=== PATIENT | female | born 2000 | race Caucasian/White ===

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

== ENCOUNTER 2020-05-07 23:56 | Emergency (ER) | payer BC, OTHER ==
--- OUTSIDE RECORDS SUMMARY | 2020-05-07 23:59 | XMS REPORT | Continuity of Care Document ---
:2000 Author Organization [facility] t Address [address] [place] [address] Care Team Providers Name Role Phone Val GOETZ Attending Clinician Problems Condition Condition Condition Status Onset Resolution Last Treating Co mments Source Name Details Category Date Date Treatment Clinician Date Asthma Asthma Problem Active [facility] Depression Depression Problem [facility] Anxiety Anxiety Problem Active [facility] 8 weeks [address] [facility] [address] [facility] Allergies, Adverse Reactions, Alerts This patient has no known allergies or adverse reactions. Medications Ordered Filled Start Stop Current Ordering Indication Dosage Frequency Signature Comments Components Source Medication Medication Date Date Medication? Clinician (SIG) Name Name 1 1 Yes Iza not [facility] Procedures This patient has no known procedures. Encounters Start End Encounter Admission Attending Care Care Encounter Source Date/Time Date/Time Type Type Clinicians Facility Department ID 2019-06-22 2019-06-22 Office VARGAS Neal [id number] 10:56:57 11:38:27 Visit Emily Mcintosh [id number] Ksenia [id number] Maninder [id number] [place] [address] Building 2018-07-15 2018-07-15 [facility] [id number] [facility] 14:00:00 14:00:00 [facility] Results This patient has no known results.
[2020-05-08] MEDS ORDERED: TETANUS & DIPHTHERIA TOX,ADULT 0.5 ML VIAL ONE (00:51)
[2020-05-08 01:00] LABS: Absolute Lymphocytes (CBC) 2.9 K/uL (0.7-4.9); Basophils % 0.7 % (0-1.3); Hematocrit 40.2 % (36.0-45.0); Lymphocytes % 23.8 % (15.3-44.8); RBC Red Blood Cell Count 4.59 M/uL (3.86-4.86)
[2020-05-08 01:03] LABS: Protime INR 1.08
[2020-05-08 01:24] LABS: Barbiturates NEGATIVE (NEGATIVE); Benzodiazepines NEGATIVE (NEGATIVE); Cocaine NEGATIVE (NEGATIVE); METHAMPHETAM NEGATIVE (NEGATIVE); Methadone NEGATIVE (NEGATIVE); Opiates NEGATIVE (NEGATIVE); Phencyclidine NEGATIVE (NEGATIVE); THC Cannibis POSITIVE (NEGATIVE)
[2020-05-08 01:24] LABS: ALT/SGPT 29 U/L (12-78); AST/SGOT 15 U/L (15-37); Albumin 4.1 g/dL (3.4-5.0); Alkaline Phosphatase 92 U/L (45-117); BUN Blood Urea Nitrogen 15 mg/dL (7-18); Bicarbonate 23 mmol/L (21-32); Bilirubin Direct 0.2 mg/dL (0-0.2); Bilirubin Total 0.5 mg/dL (0.2-1.0); Glucose Level 111 mg/dL (74-106); Potassium 3.4 mmol/L (3.5-5.1); Protein, Total 8.1 g/dL (6.4-8.2); Sodium Level 140 mmol/L (136-145)
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
--- NOTE | 2020-05-08 01:52 | EDPHYS ---
Physician Documentation [facility] Name: Suad Maier Age: 19 yrs Sex: Female : 2000 Arrival Date: 05/07/2020 Time: 23:59 Bed 17 Private MD: Iza Erickson ED Physician Elizabeth Cuellar HPI: 05/08 01:07 This 19 yrs old Female presents to ER via Ambulatory with complaints of ma2 Suicidal Ideation. 01:07 The patient presents to the emergency department with anxiety, depression, suicide ma2 ideation. Onset: The symptoms/episode began/occurred gradually, 3 week(s) ago. Associated signs and symptoms: Pertinent negatives: chest pain, depression, hallucinations. Severity of symptoms: At their worst the symptoms were mild in the emergency department the symptoms are unchanged. The patient has experienced similar episodes in the past. been depressed here with SI and self inflected abrasion to left wrist . 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 - Social history:: Smoking status: Patient reports the use of cigarette tobacco products, smokes one-half pack cigarettes per day, Patient uses street drugs, marijuana, Patient/guardian denies using alcohol, Patient/guardian denies using street drugs, The patient lives with family. - Family history:: not pertinent. ROS: 01:07 Constitutional: Negative for fever, chills, and weight loss. ma2 01:07 All other systems are negative. Exam: 01:07 Constitutional: This is a well developed, well nourished patient who is awake, alert, ma2 and in no acute distress. Chest/axilla: Normal chest wall appearance and motion. Nontender with no deformity. No lesions are appreciated. Cardiovascular: Regular rate and rhythm with a normal S1 and S2. No gallops, murmurs, or rubs. Normal PMI, no JVD. No pulse deficits. Respiratory: Lungs have equal breath sounds bilaterally, clear to auscultation and percussion. No rales, rhonchi or wheezes noted. No increased work of breathing, no retractions or nasal flaring. Abdomen/GI: Soft, non-tender, with normal bowel sounds. No distension or tympany. No guarding or rebound. No evidence of tenderness throughout. Back: No spinal tenderness. No costovertebral tenderness. Full range of motion. Skin: left wrist with superficial abrasions - self inflected.. Warm, dry with normal turgor. Normal color with no rashes, no lesions, and no evidence of cellulitis. MS/ Extremity: Pulses equal, no cyanosis. Neurovascular intact. Full, normal range of motion. Neuro: Awake and alert, GCS 15, oriented to person, place, time, and situation. Cranial nerves II-XII grossly intact. Motor strength 5/5 in all extremities. Sensory grossly intact. Cerebellar exam normal. Normal gait. Psych: Awake, alert, with orientation to person, place and time. Behavior, mood, and affect are within normal limits. 01:07 Psych: Behavior/mood is pleasant, suicidal, depressed, Affect is flat, Oriented to person, place, time, Patient having thoughts of suicide. Judgement / Insight is normal. Memory is normal. Delusions/hallucinations are not present. Vital Signs: 00:10 BP 134 / 95; Pulse 93; Resp 16; Temp 98; Pulse Ox 99% ; Weight 63.5 kg; Height 5 ft. 6 rr5 in. (167.64 cm); Pain 0/10; 08:06 BP 127 / 85; Pulse 87; Resp 17; Temp 98; Pulse Ox 100% ; bp 00:10 Body Mass Index 22.60 (63.50 kg, 167.64 cm) rr5 MDM: 00:04 Patient medically screened. ma2 01:07 Differential diagnosis: drug withdrawal. acute psychotic break, depression, psychosis ma2 secondary to non-compliance. 01:51 Data reviewed: vital signs, nurses notes. Counseling: I had a detailed discussion with ma2 the patient and/or guardian regarding: the historical points, exam findings, and any diagnostic results supporting the discharge/admit diagnosis, the presence of at least one elevated blood pressure reading (>120/80) during this emergency department visit, the need to transfer to another facility. 07:24 ED course: Pt evaluated by [facility], they recommend outpt evaluation, rn will set up outpt appt, per report from Dr. Cuellar, plan was to dc home with [facility]. . 05/08 00:02 Order name: Acetaminophen; Complete Time: 05/08 00:02 Order name: Basic Metabolic Panel; Complete Time: 05/08 00:02 Order name: CBC with Diff; Complete Time: 05/08 00:02 Order name: ETOH Level; Complete Time: 05/08 00:02 Order name: Hepatic Function; Complete Time: 05/08 00:02 Order name: PT-INR; Complete Time: 05/08 00:02 Order name: Ptt, Activated; Complete Time: 05/08 00:02 Order name: Salicylate; Complete Time: 05/08 00:02 Order name: Urine Drug Screen; Complete Time: 05/08 00:51 Order name: Urine --Ancillary (enter results) ds4 05/08 00:52 Order name: Urine Dipstick--Ancillary (enter results) ds4 05/08 04:24 Order name: SARS-COV-2 RT PCR EDIA 05/08 00:02 Order name: Urine Test (obtain specimen); Complete Time: 00:43 05/08 00:02 Order name: EKG; Complete Time: 00:03 ma05/08 00:02 Order name: EKG - Nurse/Tech; Complete Time: 00:24 ma2 05/08 00:02 Order name: IV Saline Lock; Complete Time: 00:24 05/08 00:02 Order name: Labs collected and sent; Complete Time: 00:24 ma05/08 00:02 Order name: Urine Dipstick-Ancillary (obtain specimen); Complete Time: 00:43 05/08 00:28 Order name: Dressing - Wound; Complete Time: 00:42 ma2 Administered Medications: 00:41 Drug: Tetanus-Diphtheria Toxoid Adult 0.5 ml {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 Exp: rr5 08/20/2021. Lot #: [id number]. } Route: IM; Site: right deltoid; : Follow up: Response: No adverse reaction rr5 Disposition: 05/08/20 07:26 Discharged to Home. Impression: Suicidal ideations - Resolved. - Condition is Stable. - Discharge Instructions: Helping Someone Who is Suicidal, Stress and Stress Management. - Medication Reconciliation Form, Thank You Letter, Antibiotic Education, Prescription Opioid Use form. - Follow up: Private Physician; When: 1 - 2 days; Reason: Recheck today's complaints, Re-evaluation by your physician. - Problem is new. - Symptoms have improved. Signatures: Dispatcher [employer] [facility] Juan Strong MD MD rn Carolina Velazco RN RN ss Elizabeth Cuellar MD MD ma2 Dontae Kam RN RN rr5 Corrections: (The following items were deleted from the chart) 03:20 02:58 CORONAVIRUS+MR.LAB.BRZ ordered. [facility] 07:25 01:51 05/08/2020 01:51 Transfer ordered to Psych Facility. Diagnosis is Suicidal rn ideations. Reason for transfer: Higher level of care. Accepting physician is psych. Condition is Stable. Problem is new. Symptoms are unchanged. ma2 08:38 07:26 05/08/2020 07:26 Discharged to Home. Impression: Suicidal ideations - Resolved. Condition is Stable. Forms are Medication Reconciliation Form, Thank You Letter, Antibiotic Education, Prescription Opioid Use. Follow up: Private Physician; When: 1 - 2 days; Reason: Recheck today's complaints, Re-evaluation by your physician. Problem is new. Symptoms have improved. rn
[2020-05-08 02:45] LABS: Urine Specific Gravity >1.030 (1.005-1.030)
[2020-05-08 02:47] LABS: Urine Blood TRACE (NEG); Urine Glucose NEGATIVE (NEG); Urine Protein 2+ (NEG); Urine Specific Gravity >1.030 (1.005-1.030); Urine pH 5.5 (5.0-7.0)
[2020-05-08 08:46] VITALS: TEMP 98
[2020-05-08 08:54] VITALS: BP 127/85; O2SAT 100
== END 2020-05-08 08:38 | disposition home or self-care (01) ==
LOC: ER 23:56
DX: R45.851 Suicidal ideations (principal); Z20.828 Contact with and (suspected) exposure to other viral communicable diseases; F17.210 Nicotine dependence, cigarettes, uncomplicated; F32.9 Major depressive disorder, single episode, unspecified; Z23 Encounter for immunization; Z88.8 Allergy status to other drugs, medicaments and biological substances
CPT/HCPCS: 93005; 85025; 80048; 36415; 80320; 80329 ×2; 81025; 85610; 80076; 80307 ×8; 85730; 81003; 90471; 90714; 99285; U0003

== ENCOUNTER 2020-08-17 13:04 | Emergency (ER) | payer OTHER ==
--- OUTSIDE RECORDS SUMMARY | 2020-08-17 13:07 | XMS REPORT | Continuity of Care Document ---
:2000 Author Organization [facility] t Address [address] [place] [address] Care Team Providers Name Role Phone Val GOETZ Attending Clinician Problems Condition Condition Condition Status Onset Resolution Last Treating Co mments Source Name Details Category Date Date Treatment Clinician Date Anxiety Anxiety Problem Active [facility] 8 weeks 8 weeks [facility] Asthma Asthma Problem Active [facility] Depression Depression Problem Active [facility] Allergies, Adverse [...] Department ID 2019-06-22 2019-06-22 Office VARGAS Neal [id number] 10:56:57 11:38:27 Visit Emily Mcintosh [id number] Ksenia [id number] Maninder [phone] [address] 2018-07-15 2018-07-15 Outpatient Eva Castelan [id number] [address] 14:00:00 14:00:00 [facility] Clin[facility] Results This patient has no known results.
--- NOTE | 2020-08-17 17:43 | ER ---
Nurse's Notes [facility] Name: Suad Maier Age: 20 yrs Sex: Female : 2000 Arrival Date: 08/17/2020 Time: 13:07 Bed Waiting Private MD: Diagnosis: Presentation: 08/17 13:37 Chief complaint: Patient states: Been sick for about a week. Can't seem to keep ca1 anything down, food and water. Very nauseous and it hurts to breathe. Fever on and off. Coronavirus screen: Client denies travel out of the [place] in the last 14 days. fever, nausea, vomiting. Client presents with at least one sign or symptom that may indicate coronavirus-19. Standard/surgical mask placed on the client. Provider contacted for isolation considerations. Ebola Screen: Patient negative for fever greater than or equal to 101.5 degrees Fahrenheit, and additional compatible Ebola Virus Disease symptoms Patient denies exposure to infectious person. Patient denies travel to an Ebola-affected area in the 21 days before illness onset. No symptoms or risks identified at this time. Initial Sepsis Screen: Does the patient meet any 2 criteria? No. Patient's initial sepsis screen is negative. Does the patient have a suspected source of infection? No. Patient's initial sepsis screen is negative. Risk Assessment: Do you want to hurt yourself or someone else? Patient reports no desire to harm self or others. Onset of symptoms was August 17, 2020. 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 - Social history:: Smoking status: Patient reports the use of cigarette tobacco products, smokes one pack cigarettes per day. Reported history of juuling and/or vaping. Vital Signs: 13:37 BP 114 / 74; Pulse 83; Resp 16 S; Temp 98.2(TE); Pulse Ox 100% on R/A; Weight 63.5 kg ca1 (R); Height 5 ft. 6 in. (167.64 cm) (R); Pain 3/10; 13:37 Body Mass Index 22.60 (63.50 kg, 167.64 cm) ca1 ED Course: 13:07 Patient arrived in ED. ds1 13:39 Triage completed. ca1 13:40 Arm band placed on right wrist. ca1 17:42 Patient's name was called from ER lobby. No response. Unable to locate patient. Will ca1 disposition as left without being seen by a provider. Administered Medications: No medications were administered Outcome: 17:42 Patient left the ED. ca1 Signatures: Leonora Dodd ds1 Noemi Carter, RN RN ca1
[2020-08-17 17:47] VITALS: BP 114/74; TEMP 98.2; O2SAT 100
== END 2020-08-17 17:42 | disposition left against medical advice (07) ==
LOC: ER 13:04
DX: Z02.9 Encounter for administrative examinations, unspecified (principal)
CPT/HCPCS: 99281

== ENCOUNTER 2020-09-22 11:50 | Emergency (ER) | payer OTHER ==
--- OUTSIDE RECORDS SUMMARY | 2020-09-22 11:52 | XMS REPORT | Continuity of Care Document ---
:2000 Author Organization [facility] t Address [address] [place] [address] Care Team Providers Name Role Phone Judah Palomino DO Attending Clinician Val GOETZ Attending Clinician Problems Condition Condition [...] Date/Time Type Type Clinicians Facility Department ID 2020-08-29 2020-08-29 Patient Candelario NHROBBIE [id number] 00:00:00 00:00:00 [facility] [id number] Judah [facility] [id number] NASEEM [phone] [id number] 2019-06-22 2019-06-22 Office VARGAS Neal [id number] 10:56:57 11:38:27 Visit Emily Mcintosh [id number] Ksenia [id number] Maninder [phone] [address] 2018-07-15 2018-07-15 Outpatient Eva Castelan [id number] [facility] [address] 14:00:00 14:00:00 [facility] Family Medicine Medicine Outpati ent Clinics Results This patient has no known results.
[2020-09-22 12:53] LABS: Urine Bacteria <20 /HPF (<20); Urine RBC <5 /HPF (NONE SEEN)
[2020-09-22 12:54] LABS: Urine Mucus 3+ /HPF (NONE SEEN)
[2020-09-22] MEDS ORDERED: ONDANSETRON 4 MG/2 ML VIAL ONE (13:04)
[2020-09-22] MEDS ORDERED: KETOROLAC 30 MG/ML INJ ONE (13:04)
[2020-09-22] MEDS ORDERED: NA CHLORIDE 0.9% 1,000 ML ONE (13:05)
[2020-09-22] MEDS ORDERED: FAMOTIDINE 20 MG/2 ML VIAL IV ONE (13:05)
[2020-09-22 13:12] LABS: Absolute Lymphocytes (CBC) 1.6 K/uL (0.7-4.9); Basophils % 0.3 % (0-1.3); Hematocrit 39.9 % (36.0-45.0); MPV 8.7 fL (7.6-11.3); RBC Red Blood Cell Count 4.48 M/uL (3.86-4.86)
--- NOTE | 2020-09-22 13:28 | RAD REPORT ---
EXAM DESCRIPTION: CT - Abdomen Pelvis W Contrast - 09/22/2020 1:12 pm CLINICAL HISTORY: lower abdomen pain COMPARISON: No comparisons TECHNIQUE: Biphasic, helical CT imaging of the abdomen and pelvis was performed following 100 ml non -ionic IV contrast. No oral contrast administered. All CT scans are performed using dose optimization technique as appropriate and may include automated exposure control or mA/KV adjustment according to patient size. FINDINGS: No suspicious findings in the lung bases. The liver, spleen, and pancreas show no suspicious findings. Gallbladder and biliary tree are also wi thout suspicious finding. Symmetric renal function is seen with no hydronephrosis or suspicious renal mass. No pyelonephritis o r acute parenchymal process. No bladder abnormalities. No adrenal abnormalities. Normal-sized uterus is identified. IUD is in place appearing well positioned in the fundal and mid po rtions of the endometrial cavity. No evidence for migration into or through the myometrium. Small fol licles identified in normal sized ovaries. No gastric dilatation or gastric wall thickening. No small bowel abnormality. The appendix is not clara ntified and is surgically absent by patient provided history. Short segment of the ascending colon sh ows circumferential wall thickening. This may be a peristalsis artifact. There is no edema or strandi ng in the adjacent fat. There is also a short segment of the distal descending colon that shows circu mferential wall thickening. There is a trace amount of stranding in the fat adjacent to this portion of the colon. Sigmoid and rectal portions of the colon without acute finding. No free air or pneumatosis. There may be a trace amount of free fluid in the cul de sac well within physiologic limits. No hernia, mass or bulky lymphadenopathy. No suspicious bony findings. IMPRESSION: Short segment of the distal descending colon shows circumferential wall thickening with a trace amount of stranding in the adjacent fat. A mild colitis is suspected. IUD is well positioned. No evidence for migration into or through the myometrium of the uterus. Ovari es are unremarkable. No acute PHARMACY TECHNICIAN INPATIENT process. No pyelonephritis or abnormality seen.
[2020-09-22 14:25] LABS: ALT/SGPT 16 U/L (12-78); AST/SGOT 6 U/L (15-37); Albumin 4.1 g/dL (3.4-5.0); Alkaline Phosphatase 70 U/L (45-117); BUN Blood Urea Nitrogen 18 mg/dL (7-18); Bicarbonate 26 mmol/L (21-32); Bilirubin Direct 0.2 mg/dL (0-0.2); Bilirubin Total 0.8 mg/dL (0.2-1.0); Glucose Level 100 mg/dL (74-106); Lipase 197 U/L (73-393); Potassium 3.9 mmol/L (3.5-5.1); Protein, Total 7.4 g/dL (6.4-8.2); Sodium Level 138 mmol/L (136-145)
--- NOTE | 2020-09-22 14:48 | RAD REPORT ---
EXAM DESCRIPTION: US - Transvaginal Study Probe - 09/22/2020 2:24 pm CLINICAL HISTORY: Abd pain;Vaginal bleeding COMPARISON: No comparisons TECHNIQUE: Endovaginal sonography was performed. FINDINGS: Size uterus seen with no myometrial mass identifiable. An IUD is in place well positioned in the fundal and mid body endometrial cavity. No endometrial mass, polyp or abnormal fluid collectio n identifiable. Both ovaries are identified and show normal ovarian stroma blood flow pattern on Doppler evaluation. No ovarian or adnexal mass. No abnormal blood or fluid in the cul de sac. IMPRESSION: Unremarkable endovaginal pelvic ultrasound. IUD is normally positioned. No unexpected finding.
--- NOTE | 2020-09-22 15:01 | ER ---
Nurse's Notes [facility] Name: Suad Maier Age: 20 yrs Sex: Female : 2000 Arrival Date: 09/22/2020 Time: 11:53 Bed 26 Private MD: Diagnosis: Abnormal uterine and vaginal bleeding, unspecified;Left sided colitis Presentation: 09/22 12:02 Chief complaint: Patient states: I think something's wrong with my IUD. Last couple ca1 periods, I've been cramping real bad, nausea, vomiting, heavy menstrual bleeds which is not normal. This time. my period started 2 - 3 days ago. But I was sick before starting my period. Sick for about a week now. Reports sweating, chills, N/V, abdominal pain and cramps, diarrhea. Denies cough, congestion and fever. Denies urinary symptoms. Coronavirus screen: Client denies travel out of the [place] in the last 14 days. chills, diarrhea, nausea, vomiting. Ebola Screen: Patient negative for fever greater than or equal to 101.5 degrees Fahrenheit, and additional compatible Ebola Virus Disease symptoms Patient denies exposure to infectious person. Patient denies travel to an Ebola-affected area in the 21 days before illness onset. No symptoms or risks identified at this time. Initial Sepsis Screen: Does the patient meet any 2 criteria? No. Patient's initial sepsis screen is negative. Does the patient have a suspected source of infection? No. Patient's initial sepsis screen is negative. Risk Assessment: Do you want to hurt yourself or someone else? Patient reports no desire to harm self or others. Onset of symptoms was September 22, 2020. 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 - Social history:: Smoking status: Patient/guardian denies using tobacco, but has a distant history of tobacco abuse. Screenin:37 Abuse screen: Denies threats or abuse. Denies injuries from another. Nutritional zb screening: No deficits noted. Tuberculosis screening: No symptoms or risk factors identified. Fall Risk None identified. Assessment: 12:35 General: Appears in no apparent distress. uncomfortable, Behavior is crying. Pain: zb Complains of pain in suprapubic area Pain currently is 8 out of 10 on a pain scale. Quality of pain is described as aching, crampy, pressure, Pain began 1 week ago. Neuro: Level of Consciousness is awake, alert, obeys commands, Oriented to person, place, time, situation. Cardiovascular: Patient's skin is warm and dry. Respiratory: Airway is patent Respiratory effort is even, unlabored, Respiratory pattern is regular, symmetrical. GI: Abdomen is flat, Bowel sounds present X 4 quads. Abd is soft and non tender X 4 quads. Reports diarrhea, nausea, Pain is 8 out of 10 on a pain scale. vomiting. : Urine is dark CVA tenderness noted on right Reports cramping, vaginal bleeding that is moderate flow. Derm: Skin is intact, Skin is dry, Skin is normal. Musculoskeletal: Circulation, motion, and sensation intact. Range of motion: intact in all extremities. 13:39 Reassessment: Patient appears in no apparent distress at this time. Patient and/or zb family updated on plan of care and expected duration. Pain level reassessed. Patient is alert, oriented x 3, equal unlabored respirations, skin warm/dry/pink. iv fluid infusing. lights dimmed for patient comfort. adult at bedside. 14:00 Reassessment: notified ecp supplies at bedside for pelvic exam. zb 15:02 Reassessment: Patient appears in no apparent distress at this time. Patient and/or zb family updated on plan of care and expected duration. Pain level reassessed. Patient is alert, oriented x 3, equal unlabored respirations, skin warm/dry/pink. 15:25 Reassessment: gait steady and even. patient ambulated with family out to lobby. pain zb decreased. Patient states feeling better. Vital Signs: 12:02 BP 120 / 72; Pulse 72; Resp 16 S; Temp 98.3(TE); Pulse Ox 97% on R/A; Weight 63.5 kg ca1 (R); Height 5 ft. 6 in. (167.64 cm) (R); Pain 5/10; 13:30 BP 117 / 71; Pulse 60; Resp 18; Pulse Ox 99% on R/A; zb 14:34 BP 111 / 71; Pulse 56; Resp 16; Pulse Ox 99% on R/A; zb 15:25 BP 108 / 70; Pulse 62; Resp 18; Pulse Ox 99% on R/A; zb 12:02 Body Mass Index 22.60 (63.50 kg, 167.64 cm) ca1 ED Course: 11:53 Patient arrived in ED. am2 12:06 Triage completed. ca1 12:07 Arm band placed on right wrist. ca1 12:08 Ac Bartlett PA is PHCP. cp 12:08 Serafin Rubalcava MD is Attending Physician. cp 12:19 Julia Aguirre, CELESTINA is Primary Nurse. zb 12:33 Urine Microscopic Only Sent. zb 12:38 Patient has correct armband on for positive identification. Bed in low position. Call zb light in reach. Side rails up X 1. Pulse ox on. NIBP on. Door closed. Noise minimized. 13:12 CT Abd/Pelvis - IV Contrast Only In Process Unspecified. EDMS 14:23 US Transvaginal Study (Probe) In Process Unspecified. EDMS 14:50 Assist provider with pelvic exam: Set up pelvic tray. Performed by Ac GARNICA zb Specimens sent to lab. Patient tolerated well. 15:00 Peter Beyer MD is Referral Physician. cp 15:00 Referral Physician role handed off by Peter Beyer MD cp 15:00 Peter Beyer MD is Referral Physician. cp 15:25 IV discontinued, intact, bleeding controlled, No redness/swelling at site. Pressure zb dressing applied. Administered Medications: 13:38 Drug: TORadol - (ketorolac) 15 mg Route: IVP; Site: right antecubital; zb 14:32 Follow up: Response: No adverse reaction; Pain is decreased zb 13:38 Drug: Zofran (Ondansetron) 4 mg Route: IVP; Site: right antecubital; zb 14:33 Follow up: Response: No adverse reaction; Nausea is decreased zb 13:38 Drug: Pepcid (famotidine) 20 mg Route: IVP; Site: right antecubital; zb 14:33 Follow up: Response: No adverse reaction zb 13:39 Drug: NS 0.9% 1000 ml Route: IV; Rate: 1 bolus; Site: right antecubital; zb 14:32 Follow up: Response: No adverse reaction; Marked relief of symptoms; IV Status: zb Completed infusion; IV Intake: 1000ml 15:23 Drug: metroNIDAZOLE 500 mg Route: PO; zb 15:24 Follow up: Response: Medication administered at discharge. zb 15:23 Drug: Cipro (ciprofloxacin) 500 mg Route: PO; zb 15:23 Follow up: Response: Medication administered at discharge. zb Intake: 14:32 IV: 1000ml; Total: 1000ml. zb Outcome: 15:01 Discharge ordered by MD. cp 15:24 Discharged to home ambulatory. zb 15:24 Condition: stable 15:24 Discharge instructions given to patient, family, Instructed on discharge instructions, follow up and referral plans. medication usage, Demonstrated understanding of instructions, follow-up care, medications, Prescriptions given X 4. 15:26 Patient left the ED. zb Signatures: Dispatcher [employer] EDMS Ac Bartlett PA PA cp Moreno, Amanda am2 Noemi Carter RN RN ca1 Julia Aguirre RN RN zb Corrections: (The following items were deleted from the chart) 12:08 12:02 Chief complaint: Patient states: I think something's wrong with my IUD. Last ca1 couple periods, I've been cramping real bad, nausea, vomiting, heavy menstrual bleeds which is not normal. This time. my period started 2 - 3 days ago. But I was sick before starting my period. Sick for about a week now. Reports sweating, chills, N/V, abdominal pain and cramps, diarrhea. Denies cough, congestion and fever. ca1
--- NOTE | 2020-09-22 15:01 | EDPHYS ---
Physician Documentation [facility] Name: Suad Maier Age: 20 yrs Sex: Female : 2000 Arrival Date: 09/22/2020 Time: 11:53 Bed 26 Private MD: ED Physician Serafin Rubalcava HPI: 09/22 12:30 This 20 yrs old Female presents to ER via Ambulatory with complaints of cp Abdominal Pain, Nausea, Urinary Frequency, Vaginal Bleeding. 12:30 The patient presents with abdominal pain in the lower abdomen. Onset: The cp symptoms/episode began/occurred 1 week(s) ago. The symptoms radiate to lower back. Associated signs and symptoms: Pertinent positives: nausea, vomiting, and diarrhea, vaginal discharge, vaginal bleeding, Pertinent negatives: constipation, fever. The symptoms are described as crampy. Severity of pain: in the emergency department the pain is unchanged despite home interventions. 12:30 Modifying factors: The symptoms are alleviated by nothing, the symptoms are aggravated cp by lying flat. 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 - Social history:: Smoking status: Patient/guardian denies using tobacco, but has a distant history of tobacco abuse. ROS: 12:35 Constitutional: Negative for body aches, chills, fever, poor PO intake. cp 12:35 Eyes: Negative for injury, pain, redness, and discharge. cp 12:35 Cardiovascular: Negative for chest pain, palpitations. 12:35 Respiratory: Negative for cough, shortness of breath, wheezing. 12:35 Abdomen/GI: Positive for abdominal pain, nausea, vomiting, and diarrhea, abdominal cramps, Negative for hematemesis, black/tarry stool, rectal bleeding. 12:35 : Positive for vaginal bleeding, vaginal discharge, Negative for urinary symptoms. 12:35 Neuro: Negative for altered mental status, headache, weakness. 12:35 All other systems are negative. Exam: 12:40 Head/Face: Normocephalic, atraumatic. cp 12:40 Constitutional: The patient appears in no acute distress, alert, awake, non-toxic, well developed, well nourished, uncomfortable. 13:30 Eyes: Periorbital structures: appear normal, Conjunctiva: normal, no exudate, no cp injection, Sclera: no appreciated abnormality, Lids and lashes: appear normal, bilaterally. 13:30 ENT: External ear(s): are unremarkable, Nose: is normal, Posterior pharynx: Airway: no evidence of obstruction, patent. 13:30 Chest/axilla: Inspection: normal, Palpation: is normal, no crepitus, no tenderness. 13:30 Cardiovascular: Rate: normal, Rhythm: regular. 13:30 Respiratory: the patient does not display signs of respiratory distress, Respirations: normal, no use of accessory muscles, no retractions, labored breathing, is not present, Breath sounds: are clear throughout, no decreased breath sounds. 13:30 Abdomen/GI: Inspection: abdomen appears normal, Bowel sounds: active, all quadrants, Palpation: soft, in all quadrants, moderate abdominal tenderness, in the right lower quadrant and left lower quadrant, rebound tenderness, is not appreciated, voluntary guarding, is elicited in the right lower quadrant and left lower quadrant. 13:30 Back: CVA tenderness, is absent. 14:00 : Pelvic Exam: External exam: is normal, Speculum exam: mild bleeding, no cervicitis, cp os that is closed, bimanual exam reveals no cervical motion tenderness, no uterine tenderness, no adnexa tenderness or masses bilaterally, discharge, bloody, a female lead caster helper was present for the exam. Vital Signs: 12:02 BP 120 / 72; Pulse 72; Resp 16 S; Temp 98.3(TE); Pulse Ox 97% on R/A; Weight 63.5 kg ca1 (R); Height 5 ft. 6 in. (167.64 cm) (R); Pain 5/10; 13:30 BP 117 / 71; Pulse 60; Resp 18; Pulse Ox 99% on R/A; zb 14:34 BP 111 / 71; Pulse 56; Resp 16; Pulse Ox 99% on R/A; zb 15:25 BP 108 / 70; Pulse 62; Resp 18; Pulse Ox 99% on R/A; zb 12:02 Body Mass Index 22.60 (63.50 kg, 167.64 cm) ca1 MDM: 12:14 Patient medically screened. cp 13:00 Differential diagnosis: appendicitis, gastritis, Ovarian Torsion, Ureterolithiasis, cp urinary tract infection, colitis. 15:00 Data reviewed: vital signs, nurses notes, lab test result(s), radiologic studies, CT cp scan, ultrasound. 15:00 Counseling: I had a detailed discussion with the patient and/or guardian regarding: the cp historical points, exam findings, and any diagnostic results supporting the discharge/admit diagnosis, radiology results, the need for outpatient follow up, a mba intern, to return to the emergency department if symptoms worsen or persist or if there are any questions or concerns that arise at home. Response to treatment: the patient's symptoms have markedly improved after treatment, and as a result, I will discharge patient. 09/22 12:09 Order name: Urine Microscopic Only; Complete Time: 13:44 cp 09/22 12:35 Order name: Urine --Ancillary (enter results); Complete Time: 13:44 eb 09/22 12:37 Order name: Basic Metabolic Panel 09/22 12:37 Order name: CBC with Diff 09/22 12:37 Order name: Hepatic Function 09/22 12:37 Order name: Lipase 09/22 12:37 Order name: CT Abd/Pelvis - IV Contrast Only; Complete Time: 13:44 cp 09/22 12:38 Order name: Basic Metabolic Panel; Complete Time: 14:52 EDMS 09/22 12:38 Order name: CBC with Automated Diff; Complete Time: 13:44 EDMS 09/22 12:38 Order name: Liver (Hepatic) Function; Complete Time: 14:52 EDMS 09/22 12:38 Order name: Lipase; Complete Time: 14:52 EDMS 09/22 12:55 Order name: Urine Culture [facility] 09/22 13:52 Order name: GC (GONORR/CHLAMYDIA) Probe 09/22 13:52 Order name: Wet Prep 09/22 12:06 Order name: Urine Dipstick-Ancillary (obtain specimen); Complete Time: 12:33 tw4 09/22 12:06 Order name: Urine Test (obtain specimen); Complete Time: 12:33 tw4 09/22 12:37 Order name: IV Saline Lock; Complete Time: 12:56 cp 09/22 12:37 Order name: Labs collected and sent; Complete Time: 12:56 cp 09/22 13:46 Order name: US Transvaginal Study (Probe); Complete Time: 14:52 cp 09/22 13:52 Order name: Pelvic Exam Setup; Complete Time: 14:32 cp Administered Medications: 13:38 Drug: TORadol - (ketorolac) 15 mg Route: IVP; Site: right antecubital; zb 14:32 Follow up: Response: No adverse reaction; Pain is decreased zb 13:38 Drug: Zofran (Ondansetron) 4 mg Route: IVP; Site: right antecubital; zb 14:33 Follow up: Response: No adverse reaction; Nausea is decreased zb 13:38 Drug: Pepcid (famotidine) 20 mg Route: IVP; Site: right antecubital; zb 14:33 Follow up: Response: No adverse reaction zb 13:39 Drug: NS 0.9% 1000 ml Route: IV; Rate: 1 bolus; Site: right antecubital; zb 14:32 Follow up: Response: No adverse reaction; Marked relief of symptoms; IV Status: zb Completed infusion; IV Intake: 1000ml 15:23 Drug: metroNIDAZOLE 500 mg Route: PO; zb 15:24 Follow up: Response: Medication administered at discharge. zb 15:23 Drug: Cipro (ciprofloxacin) 500 mg Route: PO; zb 15:23 Follow up: Response: Medication administered at discharge. zb Disposition: 18:46 Co-signature as Attending Physician, Serafin Rubalcava MD I agree with the assessment and tw4 plan of care. Disposition: 09/22/20 15:01 Discharged to Home. Impression: Abnormal uterine and vaginal bleeding, unspecified, Left sided colitis. - Condition is Stable. - Discharge Instructions: Abnormal Uterine Bleeding, Colitis. - Prescriptions for Zofran 4 mg Oral Tablet - take 1 tablet by ORAL route every 12 hours As needed; 20 tablet. Cipro 500 mg Oral Tablet - take 1 tablet by ORAL route every 12 hours for 7 days; 14 tablet. Metronidazole 500 mg Oral Tablet - take 1 tablet by ORAL route every 8 hours; 30 tablet. Tramadol 50 mg Oral Tablet - take 1 tablet by ORAL route every 8 hours as needed; 12 tablet. - Medication Reconciliation Form, Thank You Letter, Antibiotic Education, Prescription Opioid Use form. - Follow up: Peter Beyer MD; When: 1 week; Reason: Recheck today's complaints. Follow up: Peter Beyer MD; When: 1 week; Reason: abdominal pain and diarrhea continues. Signatures: Dispatcher [employer] EDMS Ac Bartlett PA PA cp Serafin Rubalcava MD MD tw4 Noemi Carter RN RN ca1 Julia Aguirre RN RN zb Corrections: (The following items were deleted from the chart) 15:26 15:01 09/22/2020 15:01 Discharged to Home. Impression: Abnormal uterine and vaginal zb bleeding, unspecified; Left sided colitis. Condition is Stable. Forms are Medication Reconciliation Form, Thank You Letter, Antibiotic Education, Prescription Opioid Use. Follow up: Peter Beyer; When: 1 week; Reason: abdominal pain and diarrhea continues. cp 16:58 13:30 Constitutional: The patient appears in no acute distress, alert, awake, cp non-toxic, well developed, well nourished, uncomfortable, cp 16:58 13:30 Head/Face: Normocephalic, atraumatic. cp cp
[2020-09-22 15:31] VITALS: TEMP 98.3
[2020-09-22 15:32] VITALS: O2SAT 99
[2020-09-22] MEDS ORDERED: metroNIDAZOLE 500 MG TABLET ONE (15:33)
[2020-09-22] MEDS ORDERED: CIPROFLOXACIN HCL 500 MG TAB ONE (15:33)
[2020-09-22 15:36] VITALS: BP 108/70
[2020-09-25 15:01] LABS: C.trachomatis RNA,TMA Not Detected (Not Detected)
[2020-09-27 16:30] LABS: Urine Glucose NEGATIVE (Negative); Urine Specific Gravity >1.030 (1.005-1.030)
[2020-09-27 16:32] LABS: Urine Blood TRACE (Negative); Urine Protein TRACE (Negative); Urine pH 6.5 (5.0-7.0)
== END 2020-09-22 15:26 | disposition home or self-care (01) ==
LOC: ER 11:50
DX: K51.50 Left sided colitis without complications (principal); N93.9 Abnormal uterine and vaginal bleeding, unspecified; F41.8 Other specified anxiety disorders; Z88.8 Allergy status to other drugs, medicaments and biological substances
CPT/HCPCS: 96361; 87088; 85025; 87086; 80048; 36415; 81025; 82565; 80076; 87210; 81015; 83690; 87590; 87490; 74177; 76830; 96375; 96374; 99284; Q9967; J7030; J2405; 81003

== ENCOUNTER 2020-10-08 08:48 | Emergency (ER) | payer OTHER ==
--- OUTSIDE RECORDS SUMMARY | 2020-10-08 08:51 | XMS REPORT | Continuity of Care Document ---
:2000 Author Organization [facility] t Address [address] [place] [address] Care Team Providers Name Role Phone Salbador Islas LMSW Attending Clinician Unavailable Judah Palomino DO Attending Clinician Val GOETZ [...] [facility] Allergies, Adverse Reactions, Alerts This [...] Date/Time Type Type Clinicians Facility Department ID 2020-09-26 2020-09-26 Azael Islas Bala [id number] 00:00:00 00:00:00 Management Olive Greene [id number] Armen [id number] 2020-08-29 2020-08-29 Patient Candelario [facility] [id number] 00:00:00 00:00:00 Outreach Boy ANTHONY [id number] [facility] [id number] NASEEM [id number] 2019-06-22 2019-06-22 Office Val GAROBBIE [id number] 10:56:57 11:38:27 Visit Emily Mcintosh [id number] Ksenia [id number] Maninder [id number] [address] 2018-07-15 2018-07-15 [id number] [facility] 14:00:00 14:00:00 [facility] Medicine Outpati ent Clinics Results This patient has no known results.
[2020-10-08] MEDS ORDERED: NA CHLORIDE 0.9% 1,000 ML ONE (10:05)
[2020-10-08] MEDS ORDERED: ONDANSETRON 4 MG/2 ML VIAL ONE ×2 (10:05→11:37)
[2020-10-08] MEDS ORDERED: MORPHINE 4 MG/ML SYR ONE ×2 (10:05→11:36)
[2020-10-08 10:13] LABS: Absolute Lymphocytes (CBC) 2.1 K/uL (0.7-4.9); Basophils % 0.6 % (0-1.3); Hematocrit 40.2 % (36.0-45.0); Lymphocytes % 14.6 % (15.3-44.8); MPV 8.9 fL (7.6-11.3); RBC Red Blood Cell Count 4.47 M/uL (3.86-4.86)
[2020-10-08 10:20] LABS: ALT/SGPT 21 U/L (12-78); AST/SGOT 11 U/L (15-37); Albumin 3.9 g/dL (3.4-5.0); Alkaline Phosphatase 60 U/L (45-117); BUN Blood Urea Nitrogen 24 mg/dL (7-18); Bicarbonate 25 mmol/L (21-32); Bilirubin Direct 0.1 mg/dL (0-0.2); Bilirubin Total 0.5 mg/dL (0.2-1.0); Glucose Level 120 mg/dL (74-106); Lipase 165 U/L (73-393); Potassium 3.4 mmol/L (3.5-5.1); Sodium Level 142 mmol/L (136-145)
--- NOTE | 2020-10-08 11:25 | RAD REPORT ---
EXAM DESCRIPTION: CTAbdomen Pelvis W Contrast - 10/08/2020 11:13 am CLINICAL HISTORY: Abdominal pain. ABD PAIN COMPARISON: Abdomen Pelvis W Contrast dated 09/22/2020 TECHNIQUE: Biphasic CT imaging of the abdomen and pelvis was performed with 100 ml non-ionic IV cont rast. All CT scans are performed using dose optimization technique as appropriate and may include automated exposure control or mA/KV adjustment according to patient size. FINDINGS: The lung bases are clear. The liver, spleen, pancreas, adrenal glands and kidneys are within normal limits. No bowel obstruction, free air, free fluid or abscess. Significant stool is retained throughout the c olon. IUD is present in the uterus. Appendectomy. No evidence of significant lymphadenopathy. No suspicious bony findings. IMPRESSION: No acute intra-abdominal or pelvic finding.
--- NOTE | 2020-10-08 11:37 | EDPHYS ---
Physician Documentation [facility] Name: Suad Maier Age: 20 yrs Sex: Female : 2000 Arrival Date: 10/08/2020 Time: 08:49 Bed 13 Private MD: ED Physician Elizabeth Cuellar HPI: 10/08 10:45 This 20 yrs old Female presents to ER via Wheelchair with complaints of uc kb flare. 10:45 The patient presents with abdominal pain. Onset: The symptoms/episode began/occurred 3 kb day(s) ago. The symptoms do not radiate. Associated signs and symptoms: Pertinent positives: nausea, vomiting, and diarrhea, fever. The symptoms are described as constant. Modifying factors: The symptoms are alleviated by nothing, the symptoms are aggravated by pressure. Severity of pain: At its worst the pain was moderate in the emergency department the pain is unchanged. The patient has not experienced similar symptoms in the past. The patient has not recently seen a physician. Pt reports abdominal pain for 3 days with n/v/d and fever. States she has had this several times due to colitis. . 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 - Social history:: Smoking status: Patient denies any tobacco usage or history of. ROS: 10:42 Cardiovascular: Negative for chest pain, palpitations, and edema, Respiratory: Negative kb for shortness of breath, cough, wheezing, and pleuritic chest pain, MS/Extremity: Negative for injury and deformity, Skin: Negative for injury, rash, and discoloration, Neuro: Negative for headache, weakness, numbness, tingling, and seizure. 10:42 Constitutional: Positive for fever. 10:42 Abdomen/GI: Positive for abdominal pain, nausea, vomiting, and diarrhea. Exam: 10:44 Head/Face: Normocephalic, atraumatic. Cardiovascular: Regular rate and rhythm with a kb normal S1 and S2. No gallops, murmurs, or rubs. No pulse deficits. Respiratory: Respirations even and unlabored. No increased work of breathing, no retractions or nasal flaring. Skin: Warm, dry with normal turgor. Normal color. MS/ Extremity: Pulses equal, no cyanosis. Neurovascular intact. Full, normal range of motion. Neuro: Awake and alert, GCS 15, oriented to person, place, time, and situation. Moves all extremities. Normal gait. 10:44 Constitutional: The patient appears alert, awake, uncomfortable. 10:44 Abdomen/GI: Inspection: abdomen appears normal, Bowel sounds: normal, in all quadrants, Palpation: soft, in all quadrants, mild abdominal tenderness, in all quadrants, moderate abdominal tenderness, in the right upper quadrant. Vital Signs: 09:05 BP 119 / 85; Pulse 85; Resp 16 S; Temp 97.0(TE); Pulse Ox 98% on R/A; Weight 61.23 kg aa5 (R); Height 5 ft. 6 in. (167.64 cm) (R); 10:00 BP 138 / 75; Pulse 63; Resp 20; Pulse Ox 98% on R/A; Pain 10/10; kg 11:23 BP 132 / 86; Pulse 57; Resp 18 S; Pulse Ox 98% on R/A; ca1 09:05 Body Mass Index 21.79 (61.23 kg, 167.64 cm) aa5 MDM: 09:21 Patient medically screened. kb 10:43 Data reviewed: vital signs, nurses notes. Data interpreted: Pulse oximetry: on room air kb is 98 %. Interpretation: normal. 11:31 Counseling: I had a detailed discussion with the patient and/or guardian regarding: the kb historical points, exam findings, and any diagnostic results supporting the discharge/admit diagnosis, lab results, radiology results, the need for outpatient follow up, a family practitioner, a umbrella frame maker, to return to the emergency department if symptoms worsen or persist or if there are any questions or concerns that arise at home. 10/08 09:21 Order name: Basic Metabolic Panel kb 10/08 09:21 Order name: CBC with Diff; Complete Time: 10:19 kb 10/08 09:21 Order name: Hepatic Function; Complete Time: 10:31 kb 10/08 09:21 Order name: Lipase; Complete Time: 10:31 kb 10/08 09:22 Order name: Basic Metabolic Panel; Complete Time: 10:31 EDMS 10/08 10:31 Order name: CT Abd/Pelvis - IV Contrast Only kb 10/08 11:25 Order name: CT; Complete Time: 11:30 EDMS 10/08 09:21 Order name: IV Saline Lock; Complete Time: 09:44 kb 10/08 09:21 Order name: Labs collected and sent; Complete Time: 09:44 kb Administered Medications: 09:54 Drug: morphine 4 mg Route: IVP; Site: right antecubital; kg 09:55 Drug: NS 0.9% 1000 ml Route: IV; Rate: 1000 ml; Site: right antecubital; kg 09:55 Drug: Zofran (Ondansetron) 4 mg Route: IVP; Site: right antecubital; kg 11:20 Drug: Zofran (Ondansetron) 4 mg Route: IVP; Site: right antecubital; ca1 11:22 Drug: morphine 4 mg {Note: rass 1.} Route: IVP; Site: right antecubital; ca1 12:35 Drug: TORadol - (ketorolac) 15 mg Route: IVP; Site: right antecubital; zb 12:45 Follow up: Response: Medication administered at discharge. zb 12:35 Drug: Phenergan (promethazine) 12.5 mg Route: IVP; Site: right antecubital; zb 12:46 Follow up: Response: Medication administered at discharge. zb Disposition: 10/09 11:08 Co-signature as Attending Physician, Elizabeth Cuellar MD. ma2 Disposition: 10/08/20 11:36 Discharged to Home. Impression: Generalized abdominal pain, Nausea and vomiting. - Condition is Stable. - Discharge Instructions: Ulcerative Colitis, Adult, Nausea and Vomiting, Adult, [id number], Abdominal Pain, Adult, [id number]. - Prescriptions for Bentyl 20 mg Oral Tablet - take 1 tablet by ORAL route every 6 hours As needed; 20 tablet. Cipro 500 mg Oral Tablet - take 1 tablet by ORAL route every 12 hours for 10 days; 20 tablet. Flagyl 500 mg Oral Tablet - take 1 tablet by ORAL route every 8 hours for 10 days; 30 tablet. Zofran 4 mg Oral Tablet - take 1 tablet by ORAL route every 12 hours As needed; 20 tablet. - Medication Reconciliation Form, Thank You Letter, Antibiotic Education, Prescription Opioid Use form. - Follow up: Emergency Department; When: As needed; Reason: Worsening of condition. Follow up: Private Physician; When: 2 - 3 days; Reason: Recheck today's complaints, Continuance of care, Re-evaluation by your physician. Signatures: Dispatcher [employer] EDMS Haily Melvin, TERI-C SUPERVISOR WOUND-Talia Núñez, RN RN aa5 Elizabeth Cuellar MD MD ma2 Noemi Carter RN RN ca1 Julia Aguirre RN RN Chula Funez kg Corrections: (The following items were deleted from the chart) 10/08 12:55 11:36 10/08/2020 11:36 Discharged to Home. Impression: Generalized abdominal pain; zb Nausea and vomiting. Condition is Stable. Forms are Medication Reconciliation Form, Thank You Letter, Antibiotic Education, Prescription Opioid Use. Follow up: Emergency Department; When: As needed; Reason: Worsening of condition. Follow up: Private Physician; When: 2 - 3 days; Reason: Recheck today's complaints, Continuance of care, Re-evaluation by your physician. kb
--- NOTE | 2020-10-08 11:37 | ER ---
Nurse's Notes [facility] Name: Suad Maier Age: 20 yrs Sex: Female : 2000 Arrival Date: 10/08/2020 Time: 08:49 Bed 13 Private MD: Diagnosis: Generalized abdominal pain;Nausea and vomiting Presentation: 10/08 09:05 Chief complaint: Patient states: vomiting that began this morning. Pt also c/o abd pain.aa5 09:05 Coronavirus screen: nausea, vomiting. Ebola Screen: Patient negative for fever greater aa5 than or equal to 101.5 degrees Fahrenheit, and additional compatible Ebola Virus Disease symptoms. Initial Sepsis Screen: Does the patient meet any 2 criteria? No. Patient's initial sepsis screen is negative. Does the patient have a suspected source of infection? No. Patient's initial sepsis screen is negative. Risk Assessment: Do you want to hurt yourself or someone else? Patient reports no desire to harm self or others. Onset of symptoms was October 2020. 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 - Social history:: Smoking status: Patient denies any tobacco usage or history of. Screenin:59 Abuse screen: Denies threats or abuse. Nutritional screening: No deficits noted. kg Tuberculosis screening: No symptoms or risk factors identified. Fall Risk None identified. No fall in past 12 months (0 pts). No secondary diagnosis (0 pts). IV access (20 points). Ambulatory Aid- None/Bed Rest/Nurse Assist (0 pts). Gait- Normal/Bed Rest/Wheelchair (0 pts) Mental Status- Oriented to own ability (0 pts). Total Garcia Fall Scale indicates No Risk (0-24 pts). Assessment: 09:55 General: Appears uncomfortable, Behavior is anxious, crying, restless. Pain: Complains kg of pain in abdomen Pain currently is 10 out of 10 on a pain scale. at worst was 10 out of 10 on a pain scale. level that patient reports is acceptable is 3 out of 10 on a pain scale. Quality of pain is described as burning, aching, sharp, stabbing, Pain began gradually, 2-3 days ago. Neuro: No deficits noted. Cardiovascular: No deficits noted. Respiratory: No deficits noted. GI: Abdomen is flat, Pt is actively vomiting bile, clear fluid, Stools are reported to be diarrhea. Last BM was October 08, 2020. Patient complaining of bloating and gas Bowel sounds present X 4 quads. Abd is soft Abdomen is tender to palpation X 4 quads. Reports lower abdominal pain, upper abdominal pain, bloating, diarrhea, gaseousness, Pain is 10 out of 10 on a pain scale. vomiting. : No deficits noted. EENT: No deficits noted. Derm: No deficits noted. Musculoskeletal: No deficits noted. 11:23 Reassessment: Patient appears in no apparent distress at this time. No changes from ca1 previously documented assessment. Patient is alert, oriented x 3, equal unlabored respirations, skin warm/dry/pink. 12:30 Reassessment: Patient appears in no apparent distress at this time. No changes from zb previously documented assessment. Patient is alert, oriented x 3, equal unlabored respirations, skin warm/dry/pink. notified ecp that patient stated that she was still nauseous and still in pain. medications ordered. 12:47 Reassessment: kemal wheeled out by tax examining technician. zb Vital Signs: 09:05 BP 119 / 85; Pulse 85; Resp 16 S; Temp 97.0(TE); Pulse Ox 98% on R/A; Weight 61.23 kg aa5 (R); Height 5 ft. 6 in. (167.64 cm) (R); 10:00 BP 138 / 75; Pulse 63; Resp 20; Pulse Ox 98% on R/A; Pain 10/10; kg 11:23 BP 132 / 86; Pulse 57; Resp 18 S; Pulse Ox 98% on R/A; ca1 09:05 Body Mass Index 21.79 (61.23 kg, 167.64 cm) aa5 ED Course: 08:49 Patient arrived in ED. as 09:03 Haily Melvin FNP-C is PHCP. kb 09:03 Elizabeth Cuellar MD is Attending Physician. kb 09:05 Arm band placed on. aa5 09:11 Triage completed. aa5 09:34 Chula Nieves is Primary Nurse. kg 09:35 Inserted saline lock: 20 gauge in right antecubital area, using aseptic technique. kg 09:44 Basic Metabolic Panel Sent. kg 10:02 Patient has correct armband on for positive identification. Bed in low position. Call kg light in reach. Side rails up X2. 12:54 No provider procedures requiring assistance completed. IV discontinued, intact, zb bleeding controlled, No redness/swelling at site. Pressure dressing applied. Administered Medications: 09:54 Drug: morphine 4 mg Route: IVP; Site: right antecubital; kg 09:55 Drug: NS 0.9% 1000 ml Route: IV; Rate: 1000 ml; Site: right antecubital; kg 09:55 Drug: Zofran (Ondansetron) 4 mg Route: IVP; Site: right antecubital; kg 11:20 Drug: Zofran (Ondansetron) 4 mg Route: IVP; Site: right antecubital; ca1 11:22 Drug: morphine 4 mg {Note: rass 1.} Route: IVP; Site: right antecubital; ca1 12:35 Drug: TORadol - (ketorolac) 15 mg Route: IVP; Site: right antecubital; zb 12:45 Follow up: Response: Medication administered at discharge. zb 12:35 Drug: Phenergan (promethazine) 12.5 mg Route: IVP; Site: right antecubital; zb 12:46 Follow up: Response: Medication administered at discharge. zb Outcome: 11:36 Discharge ordered by MD. kb 12:54 Discharged to home via wheelchair. zb 12:54 Condition: stable 12:54 Discharge instructions given to patient, Instructed on discharge instructions, follow up and referral plans. medication usage, Demonstrated understanding of instructions, follow-up care, medications, Prescriptions given X 4. 12:55 Patient left the ED. zb Signatures: Haily Melvin, MARIEC TERI-Estefany Momin Audri, RN RN aa5 Noemi Carter RN RN ca1 Brown, Julia, RN Chula Carvalho kg Corrections: (The following items were deleted from the chart) 09:12 09:10 Arm band placed on aa5 aa5
[2020-10-08] MEDS ORDERED: PROMETHAZINE INJ 25 MG/ML AMP ONE (12:53)
[2020-10-08] MEDS ORDERED: KETOROLAC 30 MG/ML INJ ONE (12:53)
[2020-10-08 13:11] VITALS: TEMP 97; O2SAT 98
[2020-10-08 13:18] VITALS: BP 132/86
== END 2020-10-08 12:55 | disposition home or self-care (01) ==
LOC: ER 08:48
DX: K51.918 Ulcerative colitis, unspecified with other complication (principal); F41.9 Anxiety disorder, unspecified; F32.9 Major depressive disorder, single episode, unspecified; F42.9 Obsessive-compulsive disorder, unspecified; F43.10 Post-traumatic stress disorder, unspecified; Z91.5 Personal history of self-harm
CPT/HCPCS: 85025; 80048; 36415; 80076; 83690; 74177; 96375; 96374; 99284; Q9967; J2550; J7030; J2405 ×2

== ENCOUNTER 2020-10-26 08:48 | Emergency (ER) | payer OTHER ==
--- OUTSIDE RECORDS SUMMARY | 2020-10-26 08:51 | XMS REPORT | Continuity of Care Document ---
:2000 Author Organization [facility] t Address [address] [place] [address] Care Team Providers Name Role Phone Salbador Islas LMSW Attending Clinician Unavailable Jduah Palomino DO Attending Clinician Val GOETZ Attending [...] ID 2020-09-26 2020-09-26 Azael Islas Bala [id number] 00:00:00 00:00:00 Management Olive Greene [id number] Armen [id number] 2020-08-29 2020-08-29 Patient Candelario [facility] [id number] 00:00:00 00:00:00 Outreach Boy ANTHONY [id number] [facility] [id number] NASEEM [id number] 2019-06-22 2019-06-22 Office Val NCROBBIE [id number] 10:56:57 11:38:27 Visit Emily Mcintosh [id number] Ksenia [id number] Maninder [id number] [address] 2018-07-15 2018-07-15 [facility] [id number] [facility]3] 14:00:00 14:00:00 [facility] Medicine Medicine Outpati ent Clinics Results This patient has no known results.
[2020-10-26] MEDS ORDERED: PROMETHAZINE INJ 25 MG/ML AMP ONE ×2 (11:56→13:34)
[2020-10-26] MEDS ORDERED: NA CHLORIDE 0.9% 1,000 ML ONE (11:56)
[2020-10-26] MEDS ORDERED: FENTANYL CITR 100 MCG/2 ML ONE (11:56)
[2020-10-26 12:10] LABS: Absolute Lymphocytes (CBC) 0.9 K/uL (0.7-4.9); Basophils % 0.3 % (0-1.3); Lymphocytes % 9.4 % (15.3-44.8); MPV 9.5 fL (7.6-11.3); RBC Red Blood Cell Count 4.67 M/uL (3.86-4.86)
[2020-10-26 12:28] LABS: ALT/SGPT 21 U/L (12-78); AST/SGOT 13 U/L (15-37); Albumin 4.2 g/dL (3.4-5.0); Alkaline Phosphatase 55 U/L (45-117); BUN Blood Urea Nitrogen 9 mg/dL (7-18); Bicarbonate 23 mmol/L (21-32); Bilirubin Direct 0.2 mg/dL (0-0.2); Bilirubin Total 0.7 mg/dL (0.2-1.0); Glucose Level 120 mg/dL (74-106); Lipase 100 U/L (73-393); Potassium 3.6 mmol/L (3.5-5.1); Protein, Total 7.6 g/dL (6.4-8.2); Sodium Level 139 mmol/L (136-145)
[2020-10-26 13:08] LABS: Blood Morphology Comment NOT SEEN (NOT SEEN); Platelet Estimate ADEQ; White Blood Cell Scan OK (OK)
--- NOTE | 2020-10-26 14:06 | EDPHYS ---
Physician Documentation [facility] Name: Suad Maier Age: 20 yrs Sex: Female : 2000 Arrival Date: 10/26/2020 Time: 08:49 Bed 19 Private MD: Peter Beyer H ED Physician Juan Strong HPI: 10/26 11:14 This 20 yrs old Female presents to ER via Wheelchair with complaints of jr8 Abdominal Cramping, Nausea/Vomiting. 11:14 The patient presents with abdominal pain that is diffuse. Onset: The symptoms/episode jr8 began/occurred acutely, today. The symptoms do not radiate. Associated signs and symptoms: Pertinent positives: nausea and vomiting. The symptoms are described as crampy, dull. Modifying factors: The symptoms are alleviated by nothing, the symptoms are aggravated by movement. Severity of pain: At its worst the pain was moderate in the emergency department the pain is unchanged. The patient has experienced similar episodes in the past, several times. The patient has been recently seen by a physician:. Patient seen and being worked up by Dr. Beyer for unknown abdominal condition that has been causing repetitive abdominal pain with n/v/d. Mother stated that the Abx seems to help for a couple of weeks then has another episode. Was suppose to have colonoscopy today but after finishing bowel prep, woke up this morning with n/v and abdominal cramping. Patient notified Dr. Beyer and wanted her evaluated and hydrated in ED. Plans on doing colonoscopy tomorrow . Historical: - Allergies: 09:37 Lexapro; aa5 - PMHx: 09:37 Anxiety; Depression; obssessive compulsive disorder; PTSD; suicide attempt with aa5 drinking bleach; ulcerative colitis; - PSHx: 09:37 Appendectomy; aa5 - Immunization history:: Adult Immunizations up to date. - Social history:: Smoking status: Patient/guardian denies using tobacco. ROS: 11:14 Constitutional: Negative for fever, chills, and weight loss. jr8 11:14 Abdomen/GI: Positive for abdominal pain, nausea, vomiting, and diarrhea, abdominal cramps, Negative for hematemesis, black/tarry stool, rectal pain, rectal bleeding, bowel incontinence, flatulence. 11:14 All other systems are negative. Exam: 11:14 ENT: Nares patent. No nasal discharge, no septal abnormalities noted. Oropharynx with jr8 no redness, swelling, or masses, exudates, or evidence of obstruction, uvula midline. Mucous membranes dry. 11:14 Respiratory: Lungs have equal breath sounds bilaterally, clear to auscultation and percussion. No rales, rhonchi or wheezes noted. No increased work of breathing, no retractions or nasal flaring. Back: No spinal tenderness. No costovertebral tenderness. Full range of motion. Skin: Warm, dry with normal turgor. Normal color with no rashes, no lesions, and no evidence of cellulitis. MS/ Extremity: Pulses equal, no cyanosis. Neurovascular intact. Full, normal range of motion. Neuro: Awake and alert, GCS 15, oriented to person, place, time, and situation. Motor strength 5/5 in all extremities. 11:14 Constitutional: The patient appears alert, awake, obviously ill, in obvious pain, uncomfortable. 11:14 Cardiovascular: Rate: tachycardic, Rhythm: regular, Pulses: Pulses are 2+ in right radial artery and left radial artery. Heart sounds: normal, Edema: is not appreciated. 11:14 Abdomen/GI: Inspection: abdomen appears normal, Bowel sounds: active, all quadrants, Palpation: soft, in all quadrants, moderate abdominal tenderness, in the abdomen diffusely, mass, is not appreciated, rebound tenderness, is not appreciated, voluntary guarding, is not appreciated, involuntary guarding, is not appreciated, no appreciated organomegaly, Indicators: McBurney's point is not tender, John's sign is negative, Liver: tenderness, is not appreciated. Vital Signs: 09:35 BP 111 / 79; Pulse 108; Resp 18 S; Temp 97.6(A); Pulse Ox 99% on R/A; aa5 11:45 Pulse 80; Resp 15; Pulse Ox 99% ; jl7 13:23 BP 100 / 62; Pulse 92; Resp 16; Pulse Ox 100% on R/A; zb MDM: 10:38 Patient medically screened. jr8 14:04 Data reviewed: vital signs, nurses notes, lab test result(s), and as a result, I will jr8 discharge patient. Data interpreted: Pulse oximetry: on room air is 100 %. Interpretation: normal. Counseling: I had a detailed discussion with the patient and/or guardian regarding: the historical points, exam findings, and any diagnostic results supporting the discharge/admit diagnosis, lab results, the need for outpatient follow up, a family practitioner, a procedures rn, to return to the emergency department if symptoms worsen or persist or if there are any questions or concerns that arise at home. Response to treatment: the patient's symptoms have markedly improved after treatment, patient is well hydrated. 10/26 10:45 Order name: Basic Metabolic Panel [facility] 10/26 10:45 Order name: CBC with Diff [facility] 10/26 10:45 Order name: Hepatic Function [facility] 10/26 10:45 Order name: Lipase [facility] 10/26 10:45 Order name: Basic Metabolic Panel; Complete Time: 12:31 [facility] 10/26 10:46 Order name: CBC with Automated Diff; Complete Time: 13:09 [facility] 10/26 10:45 Order name: IV Saline Lock; Complete Time: 11:55 [facility] 10/26 10:46 Order name: Liver (Hepatic) Function; Complete Time: 12:31 [facility] 10/26 10:46 Order name: Lipase; Complete Time: 12:31 [facility] 10/26 12:13 Order name: CBC Smear Scan; Complete Time: 13:09 [facility] 10/26 10:45 Order name: Labs collected and sent; Complete Time: 11:55 Administered Medications: 11:50 Drug: NS 0.9% 1000 ml Route: IV; Rate: 1000 ml; Site: right antecubital; jl7 11:50 Drug: fentaNYL (PF) 25 mcg Route: IVP; Site: right antecubital; jl7 13:22 Follow up: Response: No adverse reaction; Marked relief of symptoms; Pain is decreased; zb RASS: Drowsy (-1) 11:55 Drug: Promethazine 12.5 mg Route: IVP; Site: right antecubital; jl7 13:00 Follow up: Response: No adverse reaction; Nausea unchanged zb 13:22 Drug: Promethazine 12.5 mg Route: IVP; Site: right antecubital; zb 14:00 Follow up: Response: No adverse reaction; Marked relief of symptoms; Nausea is decreasedzb Disposition: 14:44 Co-signature as Attending Physician, Juan Strong MD. rn Disposition: 10/26/20 14:05 Discharged to Home. Impression: Nausea and vomiting. - Condition is Stable. - Discharge Instructions: Nausea and Vomiting, Adult. - Prescriptions for promethazine 25 mg Rectal suppository - insert 1 suppository by RECTAL route every 6 hours; 12 suppository. - Medication Reconciliation Form, Thank You Letter, Antibiotic Education, Prescription Opioid Use form. - Follow up: Peter Beyer MD; When: Tomorrow; Reason: Recheck today's complaints, Continuance of care, Re-evaluation by your physician. - Problem is new. - Symptoms have improved. Signatures: Dispatcher [employer] EDMS Kiya Seran RN RN aj1 Juna Strong MD MD rn Calderon, Audri RN RN aa5 Driss Allen PA PA jr8 Jose Ramon Valdovinos RN RN jl7 Julia Aguirre RN RN zb Corrections: (The following items were deleted from the chart) 13:43 10:45 Urine Test ordered. boo gage 13:43 10:45 Urine Dipstick-Ancillary ordered. boo gage 14:26 14:05 10/26/2020 14:05 Discharged to Home. Impression: Nausea and vomiting. Condition aj1 is Stable. Forms are Medication Reconciliation Form, Thank You Letter, Antibiotic Education, Prescription Opioid Use. Follow up: Peter Beyer; When: Tomorrow; Reason: Recheck today's complaints, Continuance of care, Re-evaluation by your physician. Problem is new. Symptoms have improved. jr8
--- NOTE | 2020-10-26 14:06 | ER ---
Nurse's Notes [facility] Name: Suad [place] Age: 20 yrs Sex: Female : 2000 Arrival Date: 10/26/2020 Time: 08:49 Bed 19 Private MD: Peter Beyer H Diagnosis: Nausea and vomiting Presentation: 10/26 09:35 Chief complaint: Pt's mother states "she was supposed to have a colonoscopy with Dr. shilpa Beyer today so she took the bowel prep and today she's been throwing up and hurting". Pt dry heaving during triage. Coronavirus screen: nausea, vomiting. Ebola Screen: Patient negative for fever greater than or equal to 101.5 degrees Fahrenheit, and additional compatible Ebola Virus Disease symptoms. Initial Sepsis Screen: Does the patient meet any 2 criteria? No. Patient's initial sepsis screen is negative. Does the patient have a suspected source of infection? No. Patient's initial sepsis screen is negative. Risk Assessment: Do you want to hurt yourself or someone else? Patient reports no desire to harm self or others. Onset of symptoms was October 26, 2020. 09:35 Acuity: REGINALDO 3 aa5 09:35 Method Of Arrival: Wheelchair aa5 Historical: - Allergies: 09:37 Lexapro; aa5 - PMHx: 09:37 Anxiety; Depression; obssessive compulsive disorder; PTSD; suicide attempt with aa5 drinking bleach; ulcerative colitis; - PSHx: 09:37 Appendectomy; aa5 - Immunization history:: Adult Immunizations up to date. - Social history:: Smoking status: Patient/guardian denies using tobacco. Screenin:45 Abuse screen: Denies threats or abuse. Denies injuries from another. Nutritional jl7 screening: Had unintentional weight loss of 10 pounds or more. Has had N/V for 3 or more days. Tuberculosis screening: No symptoms or risk factors identified. Fall Risk IV access (20 points). Assessment: 11:45 General: Appears in no apparent distress. uncomfortable, ill, unkempt, Behavior is jl7 calm, cooperative, appropriate for age. Pain: Complains of pain in abdomen diffusely Pain currently is 10 out of 10 on a pain scale. Pain began 3 hours ago. Neuro: Level of Consciousness is awake, alert, obeys commands, Oriented to person, place, time, situation. Cardiovascular: Denies chest pain. Respiratory: Airway is patent Respiratory effort is even, unlabored, Respiratory pattern is regular, symmetrical. GI: Abdomen is non-distended, not auscultated not palpated- Reports lower abdominal pain, upper abdominal pain, nausea, vomiting. Derm: Skin is diaphoretic, Skin is pale, Skin temperature is cool. 13:23 Reassessment: Patient appears in no apparent distress at this time. Patient and/or zb family updated on plan of care and expected duration. Pain level reassessed. mother remains at bedside. no noted vomiting at this time. reminded patient that a urine sample is needed. 13:30 Reassessment: ECP at bedside discussing care with family and patient. zb 13:43 Reassessment: Verbal order to cancel urine due to patients inability to provide sample zb at this time. 14:20 Reassessment: family at bedside. patient wheeled out w/ family. no additional issues at zb this time. d/c instructions given patient and family. Vital Signs: 09:35 BP 111 / 79; Pulse 108; Resp 18 S; Temp 97.6(A); Pulse Ox 99% on R/A; aa5 11:45 Pulse 80; Resp 15; Pulse Ox 99% ; jl7 13:23 BP 100 / 62; Pulse 92; Resp 16; Pulse Ox 100% on R/A; zb ED Course: 08:49 Patient arrived in ED. as 08:50 Peter Beyer MD is Private Physician. as 09:35 Arm band placed on. aa5 09:37 Triage completed. aa5 10:37 Driss Allen PA is PHCP. jr8 10:37 Juan Strong MD is Attending Physician. jr8 10:40 Jose Ramon Valdovinos RN is Primary Nurse. jl7 11:45 Patient has correct armband on for positive identification. Placed in gown. Bed in low jl7 position. Call light in reach. Side rails up X 1. Adult w/ patient. Pulse ox on. 11:45 Initial lab(s) drawn, by me, sent to lab. Inserted saline lock: 20 gauge in right jl7 antecubital area, using aseptic technique. Blood collected. 12:35 Primary Nurse role handed off by Jose Ramon Valdovinos RN zb 12:35 Julia Aguirre, CELESTINA is Primary Nurse. zb 14:04 Peter Beyer MD is Referral Physician. jr8 14:20 No provider procedures requiring assistance completed. IV discontinued, intact, zb bleeding controlled, No redness/swelling at site. Pressure dressing applied. Administered Medications: 11:50 Drug: NS 0.9% 1000 ml Route: IV; Rate: 1000 ml; Site: right antecubital; jl7 11:50 Drug: fentaNYL (PF) 25 mcg Route: IVP; Site: right antecubital; jl7 13:22 Follow up: Response: No adverse reaction; Marked relief of symptoms; Pain is decreased; zb RASS: Drowsy (-1) 11:55 Drug: Promethazine 12.5 mg Route: IVP; Site: right antecubital; jl7 13:00 Follow up: Response: No adverse reaction; Nausea unchanged zb 13:22 Drug: Promethazine 12.5 mg Route: IVP; Site: right antecubital; zb 14:00 Follow up: Response: No adverse reaction; Marked relief of symptoms; Nausea is decreasedzb Outcome: 14:05 Discharge ordered by . jr8 14:20 Discharged to home ambulatory. zb 14:20 Condition: stable 14:20 Discharge instructions given to patient, family, Instructed on discharge instructions, follow up and referral plans. Demonstrated understanding of instructions, follow-up care, medications, Prescriptions given X 1. 14:26 Patient left the ED. aj1 Signatures: Kiya Serna RN RN aj1 Estefany Polanco Audri, RN RN alessio5 Driss Allen PA PA jr8 Jose Ramon Valdovinos RN RN jl7 Julia Aguirre, CELESTINA OSCAR zwill
[2020-10-26 14:32] VITALS: TEMP 97.6
[2020-10-26 14:34] VITALS: BP 100/62; O2SAT 100
== END 2020-10-26 14:26 | disposition home or self-care (01) ==
LOC: ER 08:48
DX: R11.2 Nausea with vomiting, unspecified (principal); R10.9 Unspecified abdominal pain; Z88.8 Allergy status to other drugs, medicaments and biological substances
CPT/HCPCS: 85025; 80048; 36415; 80076; 83690; 96375; 96374; 99284; J2550 ×2; J3010; J7030

== ENCOUNTER 2020-10-28 08:45 | Emergency (ER) | payer OTHER ==
--- OUTSIDE RECORDS SUMMARY | 2020-10-28 08:48 | XMS REPORT | Continuity of Care Document ---
:2000 Author Organization [facility] t Address [address] [place] [address] Care Team Providers Name Role Phone Salbador [...] [facility] Allergies, Adverse Reactions, Alerts This [...] ID 2020-09-26 2020-09-26 Azael Islas Bala [id number] 00:00:00 00:00:00 Management Olive Greene [id number] Armen [id number] 2020-08-29 2020-08-29 Patient Candelario [facility] [id number] 00:00:00 00:00:00 Outreach Boy ANTHONY [id number] [facility] [id number] NASEEM [id number] 2019-06-22 2019-06-22 Office Val AZROBBIE [id number] 10:56:57 11:38:27 Visit Emily Mcintosh [id number] Ksenia [id number] Maninder [id number] [address] 2018-07-15 2018-07-15 [facility] [id number] [facility] 14:00:00 14:00:00 [facility] Medicine Medicine Outpati ent Clinics Results This patient has no known results.
[2020-10-28] MEDS ORDERED: PROMETHAZINE INJ 25 MG/ML AMP ONE (09:19)
[2020-10-28] MEDS ORDERED: MORPHINE 4 MG/ML SYR ONE ×2 (09:19→11:17)
[2020-10-28 09:23] LABS: Absolute Lymphocytes (CBC) 1.5 K/uL (0.7-4.9); Basophils % 0.2 % (0-1.3); Hematocrit 36.7 % (36.0-45.0); MPV 9.3 fL (7.6-11.3); RBC Red Blood Cell Count 4.06 M/uL (3.86-4.86)
[2020-10-28 09:34] LABS: ALT/SGPT 16 U/L (12-78); AST/SGOT 10 U/L (15-37); Albumin 3.6 g/dL (3.4-5.0); Alkaline Phosphatase 48 U/L (45-117); BUN Blood Urea Nitrogen 18 mg/dL (7-18); Bicarbonate 22 mmol/L (21-32); Bilirubin Direct 0.2 mg/dL (0-0.2); Bilirubin Total 0.4 mg/dL (0.2-1.0); Glucose Level 109 mg/dL (74-106); Lipase 82 U/L (73-393); Potassium 3.6 mmol/L (3.5-5.1); Protein, Total 6.4 g/dL (6.4-8.2); Sodium Level 143 mmol/L (136-145)
[2020-10-28] MEDS ORDERED: METRONIDAZOLE 500mg IVPB 500 MG/100 ML BAG IV ONE (10:28)
[2020-10-28] MEDS ORDERED: METHYLPREDNISOLONE 125 MG INJ ONE (10:28)
[2020-10-28] MEDS ORDERED: CIPROFLOXACIN 400mg IV 400 MG/200 ML BAG IV ONE (10:28)
[2020-10-28] MEDS ORDERED: PANTOPRAZOLE 40 MG INJ ONE (10:32)
--- NOTE | 2020-10-28 12:01 | ER ---
Nurse's Notes [facility] Name: Suad Maier Age: 20 yrs Sex: Female : 2000 Arrival Date: 10/28/2020 Time: 08:47 Bed 6 Private MD: Diagnosis: Nausea and vomiting;Epigastric pain Presentation: 10/28 08:51 Chief complaint: EMS states: called out for N/V and chest pain, was seen here 2 days em ago for a hernia under the sternum that causes SOB and was discharged, woke up today at 0630 and started having nausea and vomiting, took a Zofran with no relief, EMS gave 12.5 mg Phenergan, 4 mg Zofran, and 300 mL NS, BGL 126. Coronavirus screen: Client denies travel out of the [place] in the last 14 days. Ebola Screen: Patient negative for fever greater than or equal to 101.5 degrees Fahrenheit, and additional compatible Ebola Virus Disease symptoms Patient denies exposure to infectious person. Patient denies travel to an Ebola-affected area in the 21 days before illness onset. No symptoms or risks identified at this time. Initial Sepsis Screen: Does the patient meet any 2 criteria? No. Patient's initial sepsis screen is negative. Does the patient have a suspected source of infection? No. Patient's initial sepsis screen is negative. Risk Assessment: Do you want to hurt yourself or someone else? Patient reports no desire to harm self or others. Onset of symptoms was October 28, 2020. 08:51 Method Of Arrival: EMS: [facility] em 08:51 Acuity: REGINALDO 3 em Historical: - Allergies: 08:54 Lexapro; em - PMHx: 08:54 Anxiety; Depression; obssessive compulsive disorder; PTSD; suicide attempt with em drinking bleach; ulcerative colitis; - PSHx: 08:54 Appendectomy; em - Immunization history:: Adult Immunizations up to date. - Social history:: Smoking status: Patient denies any tobacco usage or history of. Screenin:12 Abuse screen: Denies threats or abuse. Nutritional screening: No deficits noted. em Tuberculosis screening: No symptoms or risk factors identified. Fall Risk None identified. Assessment: 08:51 General: Appears uncomfortable. Pain: Complains of pain in epigastric area Pain em currently is 10 out of 10 on a pain scale. Neuro: Level of Consciousness is awake, alert, obeys commands, Oriented to person, place, time, situation. Cardiovascular: Capillary refill < 3 seconds Patient's skin is warm and dry. Respiratory: Airway is patent Respiratory effort is even, unlabored, Respiratory pattern is regular, symmetrical. GI: Abdomen is flat, Bowel sounds present X 4 quads. Reports diarrhea, nausea, vomiting. Derm: Skin is intact, is healthy with good turgor, Skin is pink, warm \T\ dry. Musculoskeletal: Capillary refill < 3 seconds, Range of motion: intact in all extremities. 09:20 Reassessment: Patient appears in no apparent distress at this time. Patient and/or em family updated on plan of care and expected duration. Pain level reassessed. Patient is alert, oriented x 3, equal unlabored respirations, skin warm/dry/pink. Patient states feeling better. 10:30 Reassessment: Patient appears in no apparent distress at this time. Patient and/or em family updated on plan of care and expected duration. Pain level reassessed. Patient is alert, oriented x 3, equal unlabored respirations, skin warm/dry/pink. 11:30 Reassessment: Patient appears in no apparent distress at this time. Patient and/or em family updated on plan of care and expected duration. Pain level reassessed. Patient is alert, oriented x 3, equal unlabored respirations, skin warm/dry/pink. Vital Signs: 08:51 BP 141 / 78; Pulse 78; Resp 16; Temp 97.8; Pulse Ox 100% on R/A; Weight 56.7 kg; Height em 5 ft. 6 in. (167.64 cm); Pain 10/10; 09:27 BP 141 / 78; Pulse 70; Resp 16; Pulse Ox 98% ; sv 10:29 BP 126 / 89; Pulse 63; Resp 18; Pulse Ox 98% on R/A; em 11:30 BP 118 / 74; Pulse 71; Resp 15; Pulse Ox 97% on R/A; em 08:51 Body Mass Index 20.18 (56.70 kg, 167.64 cm) em ED Course: 08:47 Patient arrived in ED. em1 08:50 Bradley Vicente, CELESTINA is Primary Nurse. em 08:52 Driss Allen PA is PHCP. jr8 08:52 Broderick Jerez MD is Attending Physician. jr8 08:53 Triage completed. em 08:54 Arm band placed on. em 08:54 Patient has correct armband on for positive identification. Bed in low position. Call em light in reach. Side rails up X2. Pulse ox on. NIBP on. 09:12 Maintain EMS IV. Dressing intact. Good blood return noted. Site clean \T\ dry. Gauge \T\ em site: 18 G RAC. 12:00 Peter Beyer MD is Referral Physician. jr8 13:05 No provider procedures requiring assistance completed. IV discontinued, intact, em bleeding controlled, No redness/swelling at site. Pressure dressing applied. Administered Medications: 09:05 Drug: Promethazine 12.5 mg Route: IVP; Site: right antecubital; em 09:09 Follow up: Response: No adverse reaction; Marked relief of symptoms; Nausea is decreasedem 09:08 Drug: morphine 4 mg Route: IVP; Site: right antecubital; em 09:19 Follow up: Response: No adverse reaction; Marked relief of symptoms; Pain is decreased; em RASS: Alert and Calm (0) 10:11 Drug: Flagyl (metroNIDAZOLE) 500 mg Volume: 100 ml; Route: IVPB; Rate: 200 ml/hr; em Infused Over: 30 mins; Site: right antecubital; 10:40 Follow up: Response: No adverse reaction; IV Status: Completed infusion; IV Intake: em 100ml 10:51 Drug: SOLU-Medrol (methylPrednisoLONE) 125 mg Route: IVP; Site: right antecubital; em 11:03 Follow up: Response: No adverse reaction em 10:55 Drug: ProTONIX (pantoprazole) 40 mg Route: IVP; Site: right antecubital; em 11:03 Follow up: Response: No adverse reaction em 11:00 Drug: morphine 4 mg Route: IVP; Site: right antecubital; em 11:20 Follow up: Response: No adverse reaction; Marked relief of symptoms; Pain is decreased em 11:02 Drug: Cipro (ciprofloxacin) 400 mg Volume: 200 ml; Route: IVPB; Infused Over: 60 mins; em Site: right antecubital; 13:05 Follow up: Response: No adverse reaction; IV Status: Completed infusion; IV Intake: em 200ml Intake: 10:40 IV: 100ml; Total: 100ml. em 13:05 IV: 200ml; Total: 300ml. em Outcome: 12:00 Discharge ordered by MD. haddad 13:05 Discharged to home via wheelchair. em 13:05 Condition: improved 13:05 Discharge instructions given to patient, Instructed on discharge instructions, follow up and referral plans. medication usage, Demonstrated understanding of instructions, follow-up care, medications, Prescriptions given X 2. 13:07 Patient left the ED. em Signatures: Kath Escobar RN RN sv Munoz, Edgar, RN RN em Martinez, Eric em1 Driss Allen PA PA jr8
--- NOTE | 2020-10-28 12:01 | EDPHYS ---
Physician Documentation [facility] Name: Suad Maier Age: 20 yrs Sex: Female : 2000 Arrival Date: 10/28/2020 Time: 08:47 Bed 6 Private MD: ED Physician Broderick Jerez HPI: 10/28 09:43 This 20 yrs old Female presents to ER via EMS with complaints of jr8 Nausea/Vomiting, abdominal pain. 09:43 Onset: The symptoms/episode began/occurred suddenly, 3 day(s) ago. Possible causes: jr8 flare up of bowel problem. The symptoms are aggravated by food , The symptoms are alleviated by nothing. Associated signs and symptoms: The patient has no apparent associated signs or symptoms. Severity of symptoms: At their worst the symptoms were moderate in the emergency department the symptoms are unchanged. The patient has experienced similar episodes in the past, several times. The patient has been recently seen by a physician:. Patient seen in ED for same symptoms a few days ago. Had colonoscopy as planed in between now and then. Stated that they found hiatal hernia, gastritis, and "something with my colon". No papers available. Patient has had persistent on/off symptoms for several months now with some relief with Abx. Since three days ago, continues to have n/v/d and abdominal pain . Historical: - Allergies: 08:54 Lexapro; em - PMHx: 08:54 Anxiety; Depression; obssessive compulsive disorder; PTSD; suicide attempt with em drinking bleach; ulcerative colitis; - PSHx: 08:54 Appendectomy; em - Immunization history:: Adult Immunizations up to date. - Social history:: Smoking status: Patient denies any tobacco usage or history of. ROS: 09:43 Constitutional: Negative for fever, chills, and weight loss, Cardiovascular: Negative jr8 for chest pain, palpitations, and edema, Respiratory: Negative for shortness of breath, cough, wheezing, and pleuritic chest pain, Back: Negative for injury and pain, MS/Extremity: Negative for injury and deformity, Skin: Negative for injury, rash, and discoloration, Neuro: Negative for headache, weakness, numbness, tingling, and seizure. 09:43 Abdomen/GI: Positive for abdominal pain, nausea, vomiting, and diarrhea, Negative for hematemesis, black/tarry stool, rectal pain, rectal bleeding, bowel incontinence, flatulence. Exam: 09:43 ENT: Nares patent. No nasal discharge, no septal abnormalities noted. Tympanic jr8 membranes are normal and external auditory canals are clear. Oropharynx with no redness, swelling, or masses, exudates, or evidence of obstruction, uvula midline. Mucous membranes moist. Neck: Trachea midline, no thyromegaly or masses palpated, and no cervical lymphadenopathy. Supple, full range of motion without nuchal rigidity, or vertebral point tenderness. No Meningismus. Cardiovascular: Regular rate and rhythm with a normal S1 and S2. No gallops, murmurs, or rubs. Normal PMI, no JVD. No pulse deficits. Respiratory: Lungs have equal breath sounds bilaterally, clear to auscultation and percussion. No rales, rhonchi or wheezes noted. No increased work of breathing, no retractions or nasal flaring. Back: No spinal tenderness. No costovertebral tenderness. Full range of motion. Skin: Warm, dry with normal turgor. Normal color with no rashes, no lesions, and no evidence of cellulitis. MS/ Extremity: Pulses equal, no cyanosis. Neurovascular intact. Full, normal range of motion. Neuro: Awake and alert, GCS 15, oriented to person, place, time, and situation. 09:43 Constitutional: The patient appears alert, awake, obviously ill, in obvious pain. 09:43 Abdomen/GI: Inspection: abdomen appears normal, Bowel sounds: active, all quadrants, Palpation: soft, in all quadrants, moderate abdominal tenderness, in the abdomen diffusely, mass, is not appreciated, rebound tenderness, is not appreciated, voluntary guarding, is not appreciated, involuntary guarding, is not appreciated, no appreciated organomegaly, Indicators: McBurney's point is not tender, John's sign is negative, Liver: tenderness, is not appreciated. Vital Signs: 08:51 BP 141 / 78; Pulse 78; Resp 16; Temp 97.8; Pulse Ox 100% on R/A; Weight 56.7 kg; Height em 5 ft. 6 in. (167.64 cm); Pain 10/10; 09:27 BP 141 / 78; Pulse 70; Resp 16; Pulse Ox 98% ; sv 10:29 BP 126 / 89; Pulse 63; Resp 18; Pulse Ox 98% on R/A; em 11:30 BP 118 / 74; Pulse 71; Resp 15; Pulse Ox 97% on R/A; em 08:51 Body Mass Index 20.18 (56.70 kg, 167.64 cm) em MDM: 08:52 Patient medically screened. jr8 09:47 ED course: Placed a call into patient GI to see if we could get more insight into [facility] patients bowel process post colonoscopy. Still awaiting call back . 11:58 Data reviewed: vital signs, nurses notes, lab test result(s). Data interpreted: Pulse jr8 oximetry: on room air is 98 %. Interpretation: normal. 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 Response to treatment: the patient's symptoms have mildly improved after treatment. ED course: Discussed case with Dr. Beyer. Colonoscopy was essentially un-revealing. Discussed need for HIDA at this point which he agrees. Nuclear Med not available at this time. Talked to mom about this and need for f/u with Dr. Beyer and to have him put in for HIDA scan. Mom good with this plan . 10/28 08:58 Order name: Basic Metabolic Panel; Complete Time: 09:42 10/28 08:58 Order name: CBC with Diff; Complete Time: :42 10/28 08:58 Order name: Hepatic Function; Complete Time: 09:42 10/28 08:58 Order name: Lipase; Complete Time: 09:42 10/28 08:58 Order name: IV Saline Lock; Complete Time: 09:17 10/28 08:58 Order name: Labs collected and sent; Complete Time: : Administered Medications: 09:05 Drug: Promethazine 12.5 mg Route: IVP; Site: right antecubital; em 09:09 Follow up: Response: No adverse reaction; Marked relief of symptoms; Nausea is decreasedem 09:08 Drug: morphine 4 mg Route: IVP; Site: right antecubital; em 09:19 Follow up: Response: No adverse reaction; Marked relief of symptoms; Pain is decreased; em RASS: Alert and Calm (0) 10:11 Drug: Flagyl (metroNIDAZOLE) 500 mg Volume: 100 ml; Route: IVPB; Rate: 200 ml/hr; em Infused Over: 30 mins; Site: right antecubital; 10:40 Follow up: Response: No adverse reaction; IV Status: Completed infusion; IV Intake: em 100ml 10:51 Drug: SOLU-Medrol (methylPrednisoLONE) 125 mg Route: IVP; Site: right antecubital; em 11:03 Follow up: Response: No adverse reaction em 10:55 Drug: ProTONIX (pantoprazole) 40 mg Route: IVP; Site: right antecubital; em 11:03 Follow up: Response: No adverse reaction em 11:00 Drug: morphine 4 mg Route: IVP; Site: right antecubital; em 11:20 Follow up: Response: No adverse reaction; Marked relief of symptoms; Pain is decreased em 11:02 Drug: Cipro (ciprofloxacin) 400 mg Volume: 200 ml; Route: IVPB; Infused Over: 60 mins; em Site: right antecubital; 13:05 Follow up: Response: No adverse reaction; IV Status: Completed infusion; IV Intake: em 200ml Disposition: 13:18 Co-signature as Attending Physician, Broderick Jerez MD I agree with the assessment and kdr plan of care. Disposition: 10/28/20 12:00 Discharged to Home. Impression: Nausea and vomiting, Epigastric pain. - Condition is Stable. - Discharge Instructions: Gastritis, Adult, Nausea and Vomiting, Adult. - Prescriptions for Bentyl 20 mg Oral Tablet - take 1 tablet by ORAL route every 6 hours As needed; 20 tablet. Zofran 8 mg Oral Tablet - take 1 tablet by ORAL route every 12 hours As needed; 20 tablet. - Medication Reconciliation Form, Thank You Letter, Antibiotic Education, Prescription Opioid Use form. - Follow up: Peter Beyer MD; When: 1 week; Reason: Recheck today's complaints, Continuance of care, Re-evaluation by your physician. - Problem is new. - Symptoms have improved. Signatures: Dispatcher [employer] EDBroderick Villa MD MD kdr Bradley Vicente RN RN em Driss Allen PA PA jr8 Corrections: (The following items were deleted from the chart) 13:07 12:00 10/28/2020 12:00 Discharged to Home. Impression: Nausea and vomiting; Epigastric em pain. Condition is Stable. Forms are Medication Reconciliation Form, Thank You Letter, Antibiotic Education, Prescription Opioid Use. Follow up: Peter Beyer; When: 1 week; Reason: Recheck today's complaints, Continuance of care, Re-evaluation by your physician. Problem is new. Symptoms have improved. jr8
[2020-10-28 13:14] VITALS: TEMP 97.8
[2020-10-28 13:19] VITALS: BP 118/74; O2SAT 97
== END 2020-10-28 13:07 | disposition home or self-care (01) ==
LOC: ER 08:45
DX: R11.2 Nausea with vomiting, unspecified (principal); R10.13 Epigastric pain; F41.9 Anxiety disorder, unspecified; F32.9 Major depressive disorder, single episode, unspecified; F43.10 Post-traumatic stress disorder, unspecified; K51.90 Ulcerative colitis, unspecified, without complications; F42.9 Obsessive-compulsive disorder, unspecified
CPT/HCPCS: 96365; 96367; 85025; 80048; 36415; 80076; 83690; 96375; 99284; 96366; J2550; C9113; J2930; J0744

== ENCOUNTER 2020-11-26 07:41 | Emergency (ER) | payer OTHER ==
--- OUTSIDE RECORDS SUMMARY | 2020-11-26 07:44 | XMS REPORT | Continuity of Care Document ---
:2000 Author Organization [facility] t Address [address] [place] [address] Care Team Providers Name Role Phone Salbador [...] Type Clinicians Facility Department ID 2020-09-26 2020-09-26 Sushma Monterrosoyane [id number] 00:00:00 00:00:00 Management Olive Greene [id number] Armen [id number] 2020-08-29 2020-08-29 Patient VAGRAS Palomino [id number] 00:00:00 00:00:00 Outreach Boy ANTHONY [id number] [facility] [id number] NASEEM [id number] 2019-06-22 2019-06-22 Office VARGAS Neal [id number] 10:56:57 11:38:27 Visit Emily Mcintosh [id number] Ksenia [id number] [facility] [id number] [address] 2018-07-15 2018-07-15 [id number] [facility] 14:00:00 14:00:00 [facility] Medicine Medicine Outpati ent Clinics Results This patient has no known results.
[2020-11-26 08:15] LABS: Urine Blood Trace-intact (Negative); Urine Glucose Negative (Negative); Urine Protein 2+ (Negative); Urine Specific Gravity >=1.030 (1.005-1.030)
[2020-11-26 08:38] LABS: Absolute Lymphocytes (CBC) 1.5 K/uL (0.7-4.9); Basophils % 0.2 % (0-1.3); Hematocrit 40.2 % (36.0-45.0); Lymphocytes % 17.6 % (15.3-44.8); MPV 9.3 fL (7.6-11.3); RBC Red Blood Cell Count 4.45 M/uL (3.86-4.86)
[2020-11-26] MEDS ORDERED: MORPHINE 2 MG/ML SYR ONE (08:55)
[2020-11-26] MEDS ORDERED: ONDANSETRON 4 MG/2 ML VIAL ONE (08:56)
[2020-11-26] MEDS ORDERED: NA CHLORIDE 0.9% 1,000 ML ONE (08:56)
[2020-11-26] MEDS ORDERED: FAMOTIDINE 20 MG/2 ML VIAL IV ONE (08:56)
[2020-11-26 09:00] LABS: ALT/SGPT 16 U/L (12-78); AST/SGOT 8 U/L (15-37); Albumin 4.1 g/dL (3.4-5.0); Alkaline Phosphatase 70 U/L (45-117); BUN Blood Urea Nitrogen 16 mg/dL (7-18); Bicarbonate 23 mmol/L (21-32); Bilirubin Direct 0.2 mg/dL (0-0.2); Bilirubin Total 0.6 mg/dL (0.2-1.0); Glucose Level 96 mg/dL (74-106); Lipase 874 U/L (73-393); Potassium 3.4 mmol/L (3.5-5.1); Protein, Total 7.3 g/dL (6.4-8.2); Sodium Level 140 mmol/L (136-145)
[2020-11-26] MEDS ORDERED: PROMETHAZINE INJ 25 MG/ML AMP ONE (09:50)
--- NOTE | 2020-11-26 09:59 | ER ---
Nurse's Notes [facility] Name: Suad Maier Age: 20 yrs Sex: Female : 2000 Arrival Date: 11/26/2020 Time: 07:46 Bed 17 [facility] MD: Diagnosis: Acute pancreatitis;Gastritis, unspecified Presentation: 11/26 08:05 Chief complaint: Patient states: epigastric pain and vomiting x 3 days. Pt reports she ss was seen a few weeks ago by Dr. Beyer and was told that she has a small diaphragmatic hernia and is supposed to have her gallbladder evaluated. Coronavirus screen: Client denies travel out of the [place] in the last 14 days. Ebola Screen: Patient denies exposure to infectious person. Patient denies travel to an Ebola-affected area in the 21 days before illness onset. Initial Sepsis Screen: Does the patient meet any 2 criteria? No. Patient's initial sepsis screen is negative. Does the patient have a suspected source of infection? No. Patient's initial sepsis screen is negative. Risk Assessment: Do you want to hurt yourself or someone else? Patient reports no desire to harm self or others. Onset of symptoms was November 23, 2020. 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 - Social history:: Smoking status: Patient reports the use of cigarette tobacco products, smokes one-half pack cigarettes per day. - Family history:: not pertinent. Screenin:07 Abuse screen: Denies threats or abuse. Nutritional screening: No deficits noted. jd3 Tuberculosis screening: No symptoms or risk factors identified. Fall Risk Ambulatory Aid- None/Bed Rest/Nurse Assist (0 pts). Gait- Normal/Bed Rest/Wheelchair (0 pts) Mental Status- Oriented to own ability (0 pts). Total Garcia Fall Scale indicates No Risk (0-24 pts). Assessment: 08:06 General: Appears in no apparent distress. uncomfortable, Behavior is calm, cooperative, jd3 appropriate for age. Pain: Complains of pain in right upper quadrant and left upper quadrant Quality of pain is described as sharp, tender. Neuro: Level of Consciousness is awake, alert, obeys commands, Oriented to person, place, time, situation. Cardiovascular: Denies chest pain, Capillary refill < 3 seconds Patient's skin is warm and dry. Respiratory: Airway is patent Respiratory effort is even, unlabored, Respiratory pattern is regular, symmetrical, Denies cough, shortness of breath. GI: Abdomen is flat, non-distended, Abd is soft X 4 quads Abdomen is tender to palpation in right upper quadrant and left upper quadrant Reports upper abdominal pain, nausea, vomiting. : No signs and/or symptoms were reported regarding the genitourinary system. EENT: No signs and/or symptoms were reported regarding the EENT system. Derm: Skin is intact, Skin is dry, Skin is normal, Skin temperature is warm. Musculoskeletal: Circulation, motion, and sensation intact. Range of motion: intact in all extremities. 08:42 Reassessment: Patient appears in no apparent distress at this time. No changes from jd3 previously documented assessment. Patient and/or family updated on plan of care and expected duration. Pain level reassessed. Patient is alert, oriented x 3, equal unlabored respirations, skin warm/dry/pink. 09:35 Reassessment: Patient appears in no apparent distress at this time. Patient and/or jd3 family updated on plan of care and expected duration. Pain level reassessed. Patient is alert, oriented x 3, equal unlabored respirations, skin warm/dry/pink. reporting continued nausea and discomfort provider notified. medicated as ordered. 09:57 Reassessment: Patient appears in no apparent distress at this time. Patient and/or vg1 family updated on plan of care and expected duration. Pain level reassessed. Patient is alert, oriented x 3, equal unlabored respirations, skin warm/dry/pink. Pt stated still feeling discomfort in ABD, provider notified. Vital Signs: 08:05 BP 126 / 90; Pulse 93; Resp 16; Temp 98.4(TE); Pulse Ox 98% on R/A; Weight 56.7 kg; ss Height 5 ft. 6 in. (167.64 cm); Pain 4/10; 09:36 Pulse 84; Resp 16 S; Pulse Ox 98% on R/A; jd3 09:58 BP 102 / 61; Pulse 65; Resp 14; Pulse Ox 100% on R/A; vg1 08:05 Body Mass Index 20.18 (56.70 kg, 167.64 cm) ss ED Course: 07:46 Patient arrived in ED. mr 08:01 Elizabeth Cuellar MD is Attending Physician. ma2 08:04 Guido Delarosa, RN is Primary Nurse. jd3 08:07 Patient has correct armband on for positive identification. Bed in low position. Call jd3 light in reach. Side rails up X 1. Pulse ox on. NIBP on. 08:12 Triage completed. ss 08:13 Arm band placed on right wrist. ss 08:25 Initial lab(s) drawn, by ne, sent to lab. Inserted saline lock: 20 gauge in right dh3 forearm, using aseptic technique. Blood collected. 09:36 US Abdomen Limited In Process Unspecified. EDMS 09:52 Primary Nurse role handed off by Guido Delarosa, RN vg1 09:52 Hanna Bruce, RN is Primary Nurse. vg1 09:58 Peter Beyer MD is Referral Physician. ma2 10:11 No provider procedures requiring assistance completed. IV discontinued, intact, ss bleeding controlled, No redness/swelling at site. Pressure dressing applied. Administered Medications: 08:41 Drug: morphine 2 mg Route: IVP; Site: right forearm; jd3 08:42 Drug: NS 0.9% 1000 ml Route: IV; Rate: 1 bolus; Site: right forearm; jd3 08:42 Drug: Pepcid (famotidine) 20 mg Route: IVP; Site: right forearm; jd3 08:42 Drug: Zofran (Ondansetron) 4 mg Route: IVP; Site: right forearm; jd3 09:35 Drug: Phenergan (promethazine) 25 mg Route: IVP; Site: right forearm; jd3 Outcome: 09:59 Discharge ordered by . ma2 10:11 Discharged to home ambulatory. ss 10:11 Condition: improved 10:11 Discharge instructions given to patient, Instructed on discharge instructions, follow up and referral plans. medication usage, Demonstrated understanding of instructions, follow-up care, Prescriptions given X 3. 10:11 Patient left the ED. ss Signatures: Dispatcher [employer] EDDC MaikelEliza mr Carolina Velazco, RN RN Jacqueline Stevens 3 Guido Delarosa RN RN jd3 Elizabeth Cuellar MD MD ma2 Hanna Bruce RN RN vg1
--- NOTE | 2020-11-26 09:59 | EDPHYS ---
Physician Documentation [facility] Name: Suad Maier Age: 20 yrs Sex: Female : 2000 Arrival Date: 11/26/2020 Time: 07:46 Bed 17 Private MD: ED Physician Elizabeth Cuellar HPI: 11/26 08:41 This 20 yrs old Female presents to ER via Ambulatory with complaints of ma2 Abdominal Pain. 08:41 The patient presents with abdominal pain in the epigastric area. Onset: The ma2 symptoms/episode began/occurred gradually, 2 day(s) ago. Associated signs and symptoms: Pertinent negatives: blood in stools, diarrhea, fever. Severity of pain: At its worst the pain was mild in the emergency department the pain is unchanged. The patient has experienced similar episodes in the past. 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 - Social history:: Smoking status: Patient reports the use of cigarette tobacco products, smokes one-half pack cigarettes per day. - Family history:: not pertinent. ROS: 08:41 Constitutional: Negative for fever, chills, and weight loss, Eyes: Negative for injury, ma2 pain, redness, and discharge. 08:41 All other systems are negative. Exam: 08:41 Constitutional: This is a well developed, well nourished patient who is awake, alert, ma2 and in no acute distress. Neck: Trachea midline, no thyromegaly or masses palpated, and no cervical lymphadenopathy. Supple, full range of motion without nuchal rigidity, or vertebral point tenderness. No Meningismus. Chest/axilla: Normal chest wall appearance and motion. Nontender with no deformity. No lesions are appreciated. Cardiovascular: Regular rate and rhythm with a normal S1 and S2. No gallops, murmurs, or rubs. Normal PMI, no JVD. No pulse deficits. Respiratory: Lungs have equal breath sounds bilaterally, clear to auscultation and percussion. No rales, rhonchi or wheezes noted. No increased work of breathing, no retractions or nasal flaring. Abdomen/GI: Soft, non-tender, with normal bowel sounds. No distension or tympany. No guarding or rebound. No evidence of tenderness throughout. Back: No spinal tenderness. No costovertebral tenderness. Full range of motion. Skin: Warm, dry with normal turgor. Normal color with no rashes, no lesions, and no evidence of cellulitis. MS/ Extremity: Pulses equal, no cyanosis. Neurovascular intact. Full, normal range of motion. Neuro: Awake and alert, GCS 15, oriented to person, place, time, and situation. Cranial nerves II-XII grossly intact. Motor strength 5/5 in all extremities. Sensory grossly intact. Cerebellar exam normal. Normal gait. Vital Signs: 08:05 BP 126 / 90; Pulse 93; Resp 16; Temp 98.4(TE); Pulse Ox 98% on R/A; Weight 56.7 kg; ss Height 5 ft. 6 in. (167.64 cm); Pain 4/10; 09:36 Pulse 84; Resp 16 S; Pulse Ox 98% on R/A; jd3 09:58 BP 102 / 61; Pulse 65; Resp 14; Pulse Ox 100% on R/A; vg1 08:05 Body Mass Index 20.18 (56.70 kg, 167.64 cm) ss MDM: 08:01 Patient medically screened. [facility] 08:41 Differential diagnosis: Cholelithiasis, gastritis, gastroesophageal reflux disease, ma2 pancreatitis. 09:58 Data reviewed: vital signs, nurses notes. Counseling: I had a detailed discussion with ma2 the patient and/or guardian regarding: the historical points, exam findings, and any diagnostic results supporting the discharge/admit diagnosis, the presence of at least one elevated blood pressure reading (>120/80) during this emergency department visit, the need for outpatient follow up. Response to treatment: the patient's symptoms have resolved after treatment. 11/26 08:14 Order name: Basic Metabolic Panel; Complete Time: 09:57 [facility] 11/26 08:14 Order name: CBC with Diff; Complete Time: 09:57 [facility] 11/26 08:14 Order name: Hepatic Function; Complete Time: 09:57 [facility] 11/26 08:14 Order name: Lipase; Complete Time: 09:57 ma2 11/26 08:15 Order name: Urine --Ancillary (enter results) bd 11/26 08:15 Order name: Urine Dipstick-Ancillary; Complete Time: 08:33 EDMS 11/26 08:02 Order name: Urine Dipstick-Ancillary (obtain specimen); Complete Time: 08:14 ma2 11/26 08:02 Order name: Urine Test (obtain specimen); Complete Time: 08:14 il2 11/26 08:14 Order name: US Abdomen Limited il2 11/26 08:14 Order name: IV Saline Lock; Complete Time: 08:23 ma2 11/26 08:14 Order name: Labs collected and sent; Complete Time: 08:23 ma2 Administered Medications: 08:41 Drug: morphine 2 mg Route: IVP; Site: right forearm; jd3 08:42 Drug: NS 0.9% 1000 ml Route: IV; Rate: 1 bolus; Site: right forearm; jd3 08:42 Drug: Pepcid (famotidine) 20 mg Route: IVP; Site: right forearm; jd3 08:42 Drug: Zofran (Ondansetron) 4 mg Route: IVP; Site: right forearm; jd3 09:35 Drug: Phenergan (promethazine) 25 mg Route: IVP; Site: right forearm; jd3 Disposition: 11/26/20 09:59 Discharged to Home. Impression: Acute pancreatitis, Gastritis, unspecified. - Condition is Stable. - Discharge Instructions: Gastritis, Adult, Acute Pancreatitis. - Prescriptions for Pepcid 20 mg Oral Tablet - take 1 tablet by ORAL route once daily; 20 tablet. promethazine 25 mg Oral Tablet - take 1 tablet by ORAL route every 6 hours As needed; 20 tablet. Diclofenac Sodium 75 mg Oral Tablet Sustained Release - take 1 tablet by ORAL route 2 times per day; 30 tablet. - Medication Reconciliation Form, Thank You Letter, Antibiotic Education, Prescription Opioid Use form. - Follow up: Peter Beyer MD; When: Tomorrow; Reason: Continuance of care. Signatures: Dispatcher [facility] Carolina Velazco RN RN ss Davies, Jonathon, RN RN jd3 Alzahri, Mohammad, MD MD il2 Corrections: (The following items were deleted from the chart) 10:11 09:59 11/26/2020 09:59 Discharged to Home. Impression: Acute pancreatitis; Gastritis, ss unspecified. Condition is Stable. Prescriptions for Pepcid 20 mg Oral Tablet - take 1 tablet by ORAL route once daily; 20 tablet, promethazine 25 mg Oral Tablet - take 1 tablet by ORAL route every 6 hours As needed; 20 tablet. and Forms are Medication Reconciliation Form, Thank You Letter, Antibiotic Education, Prescription Opioid Use. Follow up: Peter Beyer; When: Tomorrow; Reason: Continuance of care. ma2
--- NOTE | 2020-11-26 10:08 | RAD REPORT ---
EXAM DESCRIPTION: US - Abdomen Exam Limited - 11/26/2020 9:36 am CLINICAL HISTORY: ABD PAIN COMPARISON: Abdomen Pelvis W Contrast dated 10/08/2020 FINDINGS: No gallstones, sludge or other abnormalities within the gallbladder lumen. There is no wal l thickening or pericholecystic fluid. No common duct stone or biliary tree dilatation identified. IMPRESSION: Normal gallbladder and biliary tree ultrasound.
[2020-11-26 10:16] VITALS: TEMP 98.4
[2020-11-26 10:20] VITALS: BP 102/61; O2SAT 100
[2020-11-26 10:37] LABS: Urine Specific Gravity/Preg >1.030 (1.005-1.030)
== END 2020-11-26 10:11 | disposition home or self-care (01) ==
LOC: ER 07:41
DX: K85.90 Acute pancreatitis without necrosis or infection, unspecified (principal); K29.70 Gastritis, unspecified, without bleeding; F17.210 Nicotine dependence, cigarettes, uncomplicated; Z88.8 Allergy status to other drugs, medicaments and biological substances
CPT/HCPCS: 85025; 80048; 36415; 81025; 80076; 81003; 83690; 76705; J2550; J2270; J7030; J2405; 96374; 96375; 99284